=== PATIENT | female | born 1940 | race Caucasian/White ===

== ENCOUNTER 2024-02-21 06:20 | Outpatient (REF) | payer SELFPAY | END 2024-02-21 06:21 | disposition home or self-care (01) | LOC: HO.MMNH2L 06:20 | PROVIDERS: Visit Provider Internal Medicine | DX: Z13.89 Encounter for screening for other disorder (principal) ==

== ENCOUNTER 2024-09-11 15:12 | Outpatient (REF) | payer MEDICARE, OTHER, SELFPAY ==
--- OUTSIDE RECORDS SUMMARY | 2024-09-12 15:44 | XMS_ITS | Clinical Summary ---
Author Organization [facility] ity Address [address] [place] [address] Care Team Providers Care Pharmacy Technician Instructor Name Role Phone Agustin Matthews MD Primary Care Provider [phone] Surgical History Surgery Date Site/Laterality Comments HERNIA REPAIR PROCEDURE:HERNIA REPAIR JOINT REPLACEMENT PROCEDURE:JOINT REPLACEMENT Medical History Medical History Date Comments Diabetes mellitus (CMS/HCC V 24, CMS/HCC V28) DX:Diabetes mellitus (HCC);COMMENT:borderline Hypertension DX:Hypertension History of transfusion DX:Histor y of transfusion GERD (gastroesophageal reflux disease) DX:GERD (gastroesophageal reflux disease) Family History Medical History Relation Name Comments Cancer Father Relation Name Status Comments Father Social History Tobacco Use Types Packs/Day Years Used Date Smoking Tobacco: Former Cigarettes Q uit: 05/08/1960 Smokeless Tobacco: Never Alcohol Use Standard Drinks/Week Comments No 0 (1 standard drink = 0.6 oz pur e alcohol) Comments Unknown Sex and Gender Information Value Date Recorded Sex Assigned at Not on file Legal Sex Female 1:36 PM EST Gender Identity Not on file Sexual Orientation Not on file Obstetrics History Last Filed Vital Signs Vital Sign Reading Time Taken Comments Blood Pressure - - Pulse - - Temperature - - Respiratory Rate - - Oxygen Saturation - - Inhaled Oxygen Concentration - - Weight 70.8 kg (156 lb) 2021 8:33 AM EDT Height 157.5 cm (5' 2 ) 2021 8:33 AM EDT Body Mass Index 28.53 2021 8:33 AM EDT Plan of Treatment Health Maintenance Due Date Last Done Comments DTaP,Tdap,and Td Vaccines (1 - Tdap) 12/02/1959 Pneumococcal Vaccine: 50+ Ye ars (1 of 1 - PCV) 1990 Zoster Vaccines (1 of 2) 1990 RSV Immunization Adult Patie nts (1 - 1-dose 75+ series) 12/02/2015 Depression Screening 04/05/2022 Falls Risk Assessment 04/05/2022 Social Influencers of Health Screening 04/05/2022 COVID-19 Vaccine (2023-2 5 season) 2024 Influenza Vaccine (Season Ended) 2025 Osteoporosis Screening (Bone Density Screening) 08/05/2031 08/04/2021 HIB Vaccines Aged Out No longer eligi ble based on patient's age to complete this topic HPV Vaccines Aged Out No longer eligi ble based on patient's age to complete this topic Hepatitis A Vaccines Aged Out No long er eligible based on patient's age to complete this topic Hepatitis B Vaccines Aged Out No long er eligible based on patient's age to complete this topic IPV Vaccines Aged Out No longer eligi ble based on patient's age to complete this topic MMR Vaccines Aged Out No longer eligi ble based on patient's age to complete this topic Meningococcal ACWY Vaccine Aged Out N o longer eligible based on patient's age to complete this topic Meningococcal B Vaccine Aged Out No l onger eligible based on patient's age to complete this topic RSV Immunization Patients Un myra 20 months Aged Out No longer eligible b ased on patient's age to complete this topic Varicella Vaccines Aged Out No longer eligible based on patient's age to complete this topic Procedures Procedure Name Priority Date/Time Associated Diagnosis Comments [facility] DEXA AXIAL SKELETON Routine 08/04/2021 12:18 PM EDT Encounter for screening for osteoporosis from Last 3 Months or Most Recently Relevant to Health Maintenance Results * [facility] DEXA AXIAL SKELETON (08/04/2021 12:18 PM EDT) Anatomical Region Laterality Modality Mammography 08/04/2021 10:4 5 AM EDT Narrative 08/04/2021 12:18 PM EDT [facility] Diagnostic Imaging Department [address] [place] [id number] Patient: ??EULALIA SENIOR ?/Age/Sex: 1940 - 80 - F Unit#: ??[id number] ? Location/Status: ??SPDIMAM/REG CLI ? Mnemonic/Ordering Site: ??MAMDEXAAX/SPMAM Ordering Physician: ??AGUSTIN MATTHEWS MD [facility] Dexa Axial Skeleton - 08/04/214 HISTORY: ??The patient is an 80-year-old postmenopausal female with clinical concern for metabolic bone disease. FINDINGS: ??Dual energy x-ray absorptiometry of the lumbar spine and femurs is performed. The mean bone mineral density at L1-3 is 0.967 gm/cm2 which is 83% of that of young normals and 103% of that of age matched controls. This yields a T- score of -1.7 and a Z-score of 0.2 which is diagnostic of osteopenia. The mean bone mineral density of the femurs bilaterally is 0.685 gm/cm2 which is 68% of that of young normals and 92% of that of age matched controls. ??This yields a T-score of -2.6 and a Z-score of -0.5 which is diagnostic of osteoporosis. ??The T-score of the left femoral neck is -2.7 which is diagnostic of osteoporosis. IMPRESSION: 1. Osteoporosis. ??There has been a decrease of 15.4% in bone mineral density in the lumbar spine since the prior examination of 02/21/2014. ??There has been a decrease of 23.5% in bone mineral density in the right femur and a decrease of 21.2% in bone mineral density in the left femur. 2. FRAX analysis yields a 10-year probability of major osteoporotic fracture of 22.3% and a 10-year probability of hip fracture of 8.5%. Code 11491 Dictating Physician: ??LEONELA PHOENIX MD Electronically Signed by: ??LEONELA PHOENIX MD Dic Date/Time: ??08/04/21 1216 Sign date/Time: ??08/04/21 1218 Procedure Note Leonela Phoenix MD - 04/27/2022 [facility] Diagnostic Imaging Department [address] [place] [address] Patient: SODAWNAEULALIA D.O.B./Age/Sex: 1940 - 80 - F Unit#: [id number] Location/Status: [facility] Mnemonic/Ordering Site: [facility] Ordering Physician: AGUSTIN MATTHEWS MD [facility] Dexa Axial Skeleton - 08/04/21 - 111 HISTORY: The patient is an 80-year-old postmenopausal female withclinical concern for metabolic bone disease. FINDINGS: Dual energy x-ray absorptiometry of the lumbar spine and femursis performed. The mean bone mineral density at L1-3 is 0.967 gm/cm2 which is83% of that of young normals and 103% of that of age matched controls. Thisyields a T- score of -1.7 and a Z-score of 0.2 which is diagnostic of osteopenia. The mean bone mineral density of the femurs bilaterally is 0.685 gm/jp7vuxaz is 68% of that of young normals and 92% of that of age matched controls.This yields a T-score of -2.6 and a Z-score of -0.5 which is diagnostic of osteoporosis. The T-score of the left femoral neck is -2.7 which isdiagnostic of osteoporosis. IMPRESSION: 1. Osteoporosis. There has been a decrease of 15.4% in bone mineraldensity in the lumbar spine since the prior examination of 02/21/2014. There hasbeen a decrease of 23.5% in bone mineral density in the right femur and adecrease of 21.2% in bone mineral density in the left femur. 2. FRAX analysis yields a 10-year probability of major osteoporoticfracture of 22.3% and a 10-year probability of hip fracture of 8.5%. Code 83384 Dictating Physician: LEONELA PHOENIX MD Electronically Signed by: LEONELA PHOENIX MD Dic Date/Time: 08/04/21 1216 Sign date/Time: 08/04/21 1218 Agustin Matthews MD IMG BI PROCEDURES Final Result from Last 3 Months or Most Recently Relevant to Health Maintenance Advance Directives Documents on File Type Date Recorded Patient Marketing Development Specialist Expl anation Health Care Decision (hx) 02/07/2019 AD DANIELS DIRECTIVE Health Care Decision (hx) 02/07/2019 AD DANIELS DIRECTIVE Health Care Decision (hx) 02/07/2019 AD DANIELS DIRECTIVE Health Care Decision (hx) 02/07/2019 AD DANIELS DIRECTIVE Health Care Decision (hx) 02/07/2019 AD DANIELS DIRECTIVE Health Care Decision (hx) 02/07/2019 AD DANIELS DIRECTIVE Health Care Decision (hx) 02/07/2019 AD DANIELS DIRECTIVE Health Care Decision (hx) 02/07/2019 AD DANIELS DIRECTIVE Health Care Decision (hx) 02/07/2019 AD DANIELS DIRECTIVE Health Care Decision (hx) 02/07/2019 AD DANIELS DIRECTIVE Health Care Decision (hx) 02/07/2019 AD DANIELS DIRECTIVE Health Care Decision (hx) 02/07/2019 AD DANIELS DIRECTIVE Health Care Decision (hx) 02/04/2019 AD DANIELS DIRECTIVE Health Care Decision (hx) 02/04/2019 AD DANIELS DIRECTIVE Health Care Decision (hx) 02/04/2019 AD DANIELS DIRECTIVE Health Care Decision (hx) 02/04/2019 AD DANIELS DIRECTIVE Health Care Decision (hx) 02/04/2019 AD DANIELS DIRECTIVE Health Care Decision (hx) 02/04/2019 AD DANIELS DIRECTIVE Health Care Decision (hx) 02/04/2019 AD DANIELS DIRECTIVE Health Care Decision (hx) 02/04/2019 AD DANIELS DIRECTIVE Health Care Decision (hx) 02/04/2019 AD DANIELS DIRECTIVE Health Care Decision (hx) 02/04/2019 AD DANIELS DIRECTIVE Health Care Decision (hx) 02/04/2019 AD DANIELS DIRECTIVE Health Care Decision (hx) 02/04/2019 AD DANIELS DIRECTIVE Health Care Decision (hx) 02/05/2013 AD DANIELS DIRECTIVE Health Care Decision (hx) 02/05/2013 AD DANIELS DIRECTIVE Health Care Decision (hx) 02/05/2013 AD DANIELS DIRECTIVE Health Care Decision (hx) 02/05/2013 AD DANIELS DIRECTIVE Health Care Decision (hx) 02/05/2013 AD DANIELS DIRECTIVE Health Care Decision (hx) 02/05/2013 AD DANIELS DIRECTIVE Health Care Decision (hx) 02/05/2013 AD DANIELS DIRECTIVE Health Care Decision (hx) 02/05/2013 AD DANIELS DIRECTIVE Health Care Decision (hx) 02/05/2013 AD DANIELS DIRECTIVE Health Care Decision (hx) 02/05/2013 AD DANIELS DIRECTIVE Health Care Decision (hx) 02/05/2013 AD DANIELS DIRECTIVE Health Care Decision (hx) 02/05/2013 AD DANIELS DIRECTIVE Care Teams Pharmacy Technician Instructor Relationship Specialty Start [place] [address] [place] [address] PCP - General Internal Medicine 08/10/18
--- OUTSIDE RECORDS SUMMARY | 2024-09-12 15:44 | XMS_ITS | Clinical Summary ---
Author Organization [facility] Address [address] [place] [address] Care Team Providers Care Coffee Urn Attendant Name Role Phone Agustin Elena MD Primary Care Provider [phone] Allergies No known active allergies Medications Medication Sig Dispensed Refills Start Date End Date Status amLODIPine (NORVASC) tablet 10 mg Take 10 mg by mouth daily. 3 08/11/2018 Active atenolol-chlortha lidone (TENORETIC) 50-25 MG per tablet Take 1 tablet by mouth daily. 3 08/04/2018 Active celecoxib (CeleBREX) 100 MG capsule Take 100 mg by mouth 2 (two) times a day as needed. 3 08/04/2018 Active simvastatin (ZOCOR) tablet 10 mg Take 10 mg by mouth every night at bedtime. 3 08/04/2018 Active omeprazole (PriLOSEC) 20 MG capsule Take 20 mg by mouth daily. 3 05/30/2018 Active aspirin 81 MG tablet Take 81 mg by mouth daily. 0 Active aspirin EC 325 MG tablet Aspirin EC take 1 dab daily po 0 04/10/2012 Active meloxicam (MOBIC) 15 MG tablet Mobic 15 mg tablet DAILY, NEEDED 0 Active Multiple Vitamins-Minerals (MULTIVITAMIN ADULT EXTRA C PO) multivitamin DAILY 0 Active traZODone (DESYREL) 50 MG tablet trazodone 50 mg tablet 0 Active amoxicillin (AMOXIL) 500 MG tablet Take 4 tabs 1 hour prior to dental appointment 20 tablet 3 02/19/2019 Active HYDROcodone-aceta minophen (NORCO) 5-325 MG per tablet Take 1 to 2 tabs every 6 hours as needed for pain. May fill for lesser quantity 42 tablet 0 06/07/2019 Active HYDROcodone-aceta minophen (NORCO) 5-325 MG per tablet Take 1 tab every 24 hours as needed for pain 20 tablet 0 09/11/2019 Active ascorbic acid (VITAMIN C) 500 MG tablet daily. 0 Active Cholecalciferol 50 MCG (2000 UT) CAPS Vitamin D3 50 mcg (2,000 unit) capsule TAKE ONE CAPSULE BY MOUTH EVERY DAY 0 Active diphenhydrAMINE (SOMINEX) 25 MG tablet diphenhydramine 25 mg tablet Take 1 tablet as needed by oral route at bedtime. 0 Active omeprazole (PriLOSEC OTC) 20 MG tablet Prilosec OTC 20 mg tablet,delayed release DAILY 0 05/21/2013 Active gabapentin (NEURONTIN) 100 MG capsule gabapentin 100 mg capsule Take 1 capsule 3 times a day by oral route for 30 days. 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 09/04/2018 Arthritis of knee, left 08/22/2018 Arthritis of knee, right 08/22/2018 Resolved Problems Problem Noted Date Diagnosed Date Resolved Date Impingement syndrome of left shoulder region 9 06/08/2021 Family History Medical History Relation Name Comments Cancer Father Relation Name Status Comments Father Social History Tobacco Use Types Packs/Day Years Used Date Smoking Tobacco: Former Cigarettes Q uit: 1961 Smokeless Tobacco: Never Alcohol Use Standard Drinks/Week Comments No 0 (1 standard drink = 0.6 oz pur e alcohol) Sex and Gender Information Value Date Recorded Sex Assigned at Not on file Gender Identity Not on file Sexual Orientation Not on file Job Start Date Occupation Industry Not on file Not on file Not on file Last Filed Vital Signs Vital Sign Reading [...] Health Maintenance Due Date Last Done Comments COVID-19 Vaccine (#1) 06/03/1941 Depression Screening 1952 Preventative Health Evaluation 1958 Fall Risk Assessment 2005 Osteoporosis Screening (DEXA Scan) 2005 RSV Adult > 60+ Yrs or (1 - 1-dose 75+ series) 12/02/2015 Influenza Vaccine (#1) 2024 , 03/07/2020, 01/27/2020, Additional history exists DTap / Tdap / Td (2 - Td or Tdap) 02/26/2025 02/26/2015 Pneumococcal Vaccine Completed 02/26/2015, 02/20/20 14 Shingrix-Zoster Vaccine Completed 09/09/2021, 03/23 Hepatitis B Vaccines Aged Out No long er eligible based on patient's age to complete this topic RSV Ped < 20 months Aged Out No longe r eligible based on patient's age to complete this topic Care Teams Coffee Urn Attendant Relationship Specialty Start Date End Date Agustin Elena MD [address] [place] [address] PCP - General Internal Medicine 08/10/18
--- OUTSIDE RECORDS SUMMARY | 2024-09-12 15:45 | XMS_ITS | Data Portability ---
Author Organization [facility], Main Office Address [address] [facility] [address] [place] [id number] Care Team Providers Care Gate Keeper Name Role Phone AGUSTIN MATTHEWS Primary Care Provider [phone] JERARDO FAJARDO OTHER ANTONIA CLEMENS [employer] Projects Lead GERMÁN RYAN General Surgeon CAMERON HOWELL Civil Engineering Assistant [phone] HAILE KOLB Thoracic Surgeon BARBIE ARREOLA Orthopedic Surgeon [phone] ILYA TONEY Urologist [employer] [facility] Thoracic Surgeon Assessment Encounter Date Assessment Date Assessment LastModified by Organization Details LastModified Time 03/29/2024 03/29/2024 This service was provided using telemedicine. Patient consented to video & audio visit Patient was located in the [facility]. Provider was located in the office. No other persons participated in the telemedicine visit except for the patient unless otherwise indicated here. Son/Abdi Total time of visit was 29 minutes. [email or web address] Not available 03/29/2024 14:48:52 05/23/2024 05/23/2024 This service was provided using telemedicine. Patient consented to video & audio visit Patient was located in the [facility]. Provider was located in the office. No other persons participated in the telemedicine visit except for the patient unless otherwise indicated here. {{}} Total time of visit was 19 minutes. [email or web address] Not available 05/23/2024 12:52:26 Plan of Treatment Reminders Order Date Submit Date Provider Last Modified By Organization Details Last Modified Time Details Appointments None recorde d. Lab HbA1c (hemogl obin A1c), blood 2024 awychowski [facility] (Centralized Electronic Ordering - All Locations), Patient Can Go To The Location Of Their Choice, 07:41:26 CMP, serum or plasma 2024 awychowski [facility] (Centralized [facility] Ordering - All Locations), Patient Can Go To The Location Of Their Choice, 07:41:26 CBC w/ auto diff 2024 awychowski [facility] (Centralized Electronic Ordering - All Locations), Patient Can Go To The Location Of Their Choice, 07:41:26 ESR (erythr ocyte sedimen tation rate), blood 2024 ORAL [facility] (Centralized Electronic Ordering - All Locations), Patient Can Go To The Location Of Their Choice, 13:27:24 iron + total iron-bi nding capacit y (TIBC), serum 2024 ORAL [facility] (Centralized Electronic Ordering - All Locations), Patient Can Go To The Location Of Their Choice, 10:05:54 prealbu min, serum 2023 ORAL [facility] (Centralized Electronic Ordering - All Locations), Patient Can Go To The Location Of Their Choice, 16:06:18 vitamin B12 + folate, serum or blood 2023 ORAL [facility] (Centralized Electronic Ordering - All Locations), Patient Can Go To The Location Of Their Choice, 16:06:15 TSH + free T4, serum 2023 ORAL [facility] (Centralized Electronic Ordering - All Locations), Patient Can Go To The Location Of Their Choice, 16:06:10 lipid panel, serum 2023 ORAL [facility] (Centralized Electronic Ordering - All Locations), Patient Can Go To The Location Of Their Choice, 16:06:14 magnesi um, serum or plasma 2023 ORAL [facility] (Centralized Electronic Ordering - All Locations), Patient Can Go To The Location Of Their Choice, 16:06:16 CBC w/ auto diff 2023 ORAL [facility] (Centralized Electronic Ordering - All Locations), Patient Can Go To The Location Of Their Choice, 16:06:12 HbA1c (hemogl obin A1c), blood 2023 ORAL [facility] (Centralized Electronic Ordering - All Locations), Patient Can Go To The Location Of Their Choice, 16:06:16 CMP, serum or plasma 2023 ORAL [facility] (Centralized Electronic Ordering - All Locations), Patient Can Go To The Location Of Their Choice, 16:06:13 urinaly sis, complet e 2023 ORAL [facility] (Centralized Electronic Ordering - All Locations), Patient Can Go To The Location Of Their Choice, 4 14:58:11 Referral orthope dic surgeon referra l - for f/u TKR x 2 2024 RAÚL Jimenez MD, [address], [address], [place], [address], 5 15:30:48 visitin g nurse referra l - for decubit us wound care 2024 025 [facility] [address] [place], [address], 5 07:14:13 general surgeon referra l - for follow up on ventral hernia 2024 025 Keysha Zimmer MD, [address], [facility] [address], [place], [address], 5 15:03:18 Procedures None recorde d. Surgeries None recorde d. Imaging XR, knee, 3 view - to confirm prosthe tic stabili ty 2024 025 [facility], [address] [place], [address], 5 09:57:47 XR, abdomen , complet e - rule out obstruc tion/co nstipat ion 2024 025 [facility], [address] [place], [address], 5 10:11:46 Medication Orders ketocon azole 2 % shampoo 2024 025 [id number], [address] [place], [address], 5 11:51:58 ondanse juhi HCl 4 mg tablet 2024 025 [facility] #[id number], [address] [place], [address], 5 11:08:46 omepraz ole 40 mg capsule ,delaye d release [address] [facility] [place]Pharmacy #[id number], [address] [place], [address], 5 13:18:01 oxycodo ne 5 mg tablet [address] [facility] ([place] [place]Pharmacy #[id number], [address] [facility] [place], [address], 5 11:08:54 omepraz ole 40 mg capsule ,delaye d release [address] [facility] ([place] [place]Pharmacy #[id number], [address] [facility] [place], [address], 14:57:59 metopro lol tartrat e 25 mg tablet 2023 024 [email or web address] [facility]armacy #[id number], [address] [place], [address], 5 11:08:09 duloxet ine 30 mg capsule ,delaye d release 2023 024 [id number], [address] [place], [address], 4 14:57:56 omepraz ole 40 mg capsule ,delaye d release 2023 024 [id number], [address] [place], [address], 17:34:17 Patient TargetsNo targets recorded. Patient Instructions Encounter Date Encounter Id Patient Instructions Last Modified By Organization Details Last Modified Time 03/07/2024 [id number] gastroesophageal reflux disease (GERD): care instructions [email or web address] Not available 03/07/2024 17:34:15 Medications (OTC , herbal therapies, supplements) reviewed and reconciled with patient and or caregiver, including potential side effects, drug interactions, instructions, and the consequences of not taking medication. Reviewed potential barriers to medication adherence, such as side effects from medication or cost of medication. [email or web address] Not available 03/07/2024 14:12:32 03/29/2024 [id number] high cholesterol : care instructions [email or web address] Not available 03/29/2024 14:57:51 preventing falls : care instructions [email or web address] Not available 03/29/2024 14:57:51 well visit, over 65: care instructions [email or web address] Not available 03/29/2024 14:57:51 05/23/2024 [id number] abdominal pain: care instructions [email or web address] Not available 05/23/2024 12:17:42 hernia: care instructions [email or web address] Not available 05/23/2024 12:17:41 07/01/2024 [id number] anemia: care instructions [email or web address] Not available 07/01/2024 13:17:59 Reason for Referral General Surgeon Referral for Hernia of anterior abdominal wall for follow up on ventral hernia Referring Physician: Agustin Matthews [facility], Encounter Date: 05/23/2024 Visiting Nurse Referral for Pressure injury of buttock stage II for decubitus wound care Referring Physician: Agustin Matthews [facility], Encounter Date: 07/01/2024 Orthopedic Surgeon Referral for 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 Referring Physician: Agustin Matthews [facility], Encounter Date: 07/30/2024 Results Created Date Observation Date Name Description Value Unit Range Abnormal Flag Note LastModifiedBy Organization Detail LastModifiedTime 07/01/1907/02/2024 IRON AND TIBC iron bind.cap.(TI BC) 346 ug/dL 250-45 0 normal Not Available [facility] ([facility]) [address] [place], [address], 07/02/2024 10:05:54 07/01/19 25 07/02/2024 IRON AND TIBC UIBC 271 ug/dL 118-36 9 normal Not Available [facility] ([facility]) [address] [place], [address], 07/02/2024 10:05:54 07/01/19 25 07/02/2024 IRON AND TIBC iron 75 ug/dL 27-139 normal Not Available [facility] ([facility]) [address] [place], [address], 07/02/2024 10:05:54 07/01/19 25 07/02/2024 IRON AND TIBC iron saturation 22 % 15-55 normal Not Available [facility] ([facility]) [address] [place], [address], 07/02/2024 10:05:54 07/01/19 25 07/02/2024 TSH+F REE T4 TSH 1.070 uIU/m L 0.450- 4.500 normal Not Available [facility] ([facility]) [address] [place], [address], 07/02/2024 16:06:10 07/01/1907/02/2024 TSH+F REE T4 T4,free(dire ct) 1.33 NG/dL 0.82-1 .77 normal Not Available [facility] ([facility]) [address] [place], [address], 07/02/2024 16:06:10 07/01/1907/02/2024 CBC WITH DIFFE RENTI AL/PL ATELE T WBC 11.8 x10e3 /uL 3.4-10 .8 above high normal Not Available [facility] ([facility]) [address] [facility], [place], [address], 07/02/2024 16:06:12 07/01/1907/02/2024 CBC WITH DIFFE RENTI AL/PL ATELE T RBC 4.83 x10e6 /uL 3.77-5 .28 normal Not Available [facility] ([facility]) [address] [place], [address], 07/02/2024 16:06:12 07/01/19 25 07/02/2024 CBC WITH DIFFE RENTI AL/PL ATELE T hemoglobin 13.5 g/dL 11.1-1 5.9 normal Not Available [facility] ([facility]) [address] [place], [address], 07/02/2024 16:06:12 07/01/1907/02/2024 CBC WITH DIFFE RENTI AL/PL ATELE T hematocrit 43.8 % 34.0-4 6.6 normal Not Available [facility] ([facility]) [address] [place], [address], 07/02/2024 16:06:12 07/01/19 25 07/02/2024 CBC WITH DIFFE RENTI AL/PL ATELE T MCV 91 fL 79-97 normal Not Available [facility] ([facility]) [address] [facility], [place], [address], 07/02/2024 16:06:12 07/01/19 25 07/02/2024 CBC WITH DIFFE RENTI AL/PL ATELE T MCH 28.0 pg 26.6-3 3.0 normal Not Available [facility] ([facility]) [address] [facility], [place], [address], 07/02/2024 16:06:12 07/01/19 25 07/02/2024 CBC WITH DIFFE RENTI AL/PL ATELE T MCHC 30.8 g/dL 31.5-3 5.7 below low normal Not Available [facility] ([facility]) [address] [facility], [place], [address], 07/02/2024 16:06:12 07/01/19 25 07/02/2024 CBC WITH DIFFE RENTI AL/PL ATELE T RDW 13.7 % 11.7-1 5.4 Not Available [facility] ([facility]) [address] [place], [address], 07/02/2024 16:06:12 07/01/19 25 07/02/2024 CBC WITH DIFFE RENTI AL/PL ATELE T platelets 281 x10e3 /uL 150-45 0 normal Not Available [facility] ([facility]) [address] [place], [address], 07/02/2024 16:06:12 07/01/19 25 07/02/2024 CBC WITH DIFFE RENTI AL/PL ATELE T neutrophils 69 % not estab. normal Not Available [facility] ([facility]) [address] [place], [address], 07/02/2024 16:06:12 07/01/19 25 07/02/2024 CBC WITH DIFFE RENTI AL/PL ATELE T lymphs 21 % not estab. normal Not Available [facility] ([facility]) [address] [place], [address], 07/02/2024 16:06:12 07/01/19 25 07/02/2024 CBC WITH DIFFE RENTI AL/PL ATELE T monocytes 6 % not estab. normal Not Available [facility] ([facility]) [address] [place], [address], 07/02/2024 16:06:12 07/01/19 25 07/02/2024 CBC WITH DIFFE RENTI AL/PL ATELE T eos 2 % not estab. normal Not Available [facility] ([facility]) [address] [place], [address], 07/02/2024 16:06:12 07/01/19 25 07/02/2024 CBC WITH DIFFE RENTI AL/PL ATELE T basos 1 % not estab. normal Not Available [facility] ([facility]) [address] [place], [address], 07/02/2024 16:06:12 07/01/19 25 07/02/2024 CBC WITH DIFFE RENTI AL/PL ATELE T immature cells SECURITY INVESTIGATOR Not Available [facility] ([facility]) [address] [place], [address], 07/02/2024 16:06:12 07/01/19 25 07/02/2024 CBC WITH DIFFE RENTI AL/PL ATELE T neutrophils (absolute) 8.3 x10e3 /uL 1.4-7. 0 above high normal Not Available [facility] ([facility]) [address] [place], [address], 07/02/2024 16:06:12 07/01/19 25 07/02/2024 CBC WITH DIFFE RENTI AL/PL ATELE T lymphs (absolute) 2.4 x10e3 /uL 0.7-3. 1 normal Not Available [facility] ([facility]) [address] [place], [address], 07/02/2024 16:06:12 07/01/19 25 07/02/2024 CBC WITH DIFFE RENTI AL/PL ATELE T monocytes(ab solute) 0.7 x10e3 /uL 0.1-0. 9 normal Not Available [facility] ([facility]) [address] [facility], [place], [address], 07/02/2024 16:06:12 07/01/19 25 07/02/2024 CBC WITH DIFFE RENTI AL/PL ATELE T eos (absolute) 0.2 x10e3 /uL 0.0-0. 4 normal Not Available [facility] ([facility]) [address] [facility], [place], [address], 07/02/2024 16:06:12 07/01/19 25 07/02/2024 CBC WITH DIFFE RENTI AL/PL ATELE T baso (absolute) 0.1 x10e3 /uL 0.0-0. 2 normal Not Available [facility] ([facility]) [address] [place], [address], 07/02/2024 16:06:12 07/01/19 25 07/02/2024 CBC WITH DIFFE RENTI AL/PL ATELE T immature granulocytes 1 % not estab. Not Available [facility] ([facility]) [address] [facility], [place], [address], 07/02/2024 16:06:12 07/01/19 25 07/02/2024 CBC WITH DIFFE RENTI AL/PL ATELE T immature grans (abs) 0.1 x10e3 /uL 0.0-0. 1 Not Available [facility] ([facility]) [address] [facility], [place], [address], 07/02/2024 16:06:12 07/01/19 25 07/02/2024 CBC WITH DIFFE RENTI AL/PL ATELE T NRBC SECURITY INVESTIGATOR Not Available [facility] ([facility]) [address] [facility], [place], [address], 07/02/2024 16:06:12 07/01/19 25 07/02/2024 CBC WITH DIFFE FRANKLIN AL/PL ATELE T hematology comments: SECURITY INVESTIGATOR Not Available [facility] ([facility]) [address] [facility], [place], [address], 07/02/2024 16:06:12 07/01/19 25 07/02/2024 COMP. METAB OLIC PANEL (14) glucose 130 mg/dL 70-99 above high normal Not Available [facility] ([facility]) [address] [facility] [place], [address], 07/02/2024 16:06:13 07/01/19 25 07/02/2024 COMP. METAB OLIC PANEL (14) BUN 22 mg/dL 8-27 normal Not Available [facility] ([facility]) [address] [facility], [place], [address], 07/02/2024 16:06:13 07/01/19 25 07/02/2024 COMP. METAB OLIC PANEL (14) creatinine 0.82 mg/dL 0.57-1 .00 normal Not Available [facility] ([facility]) [address] [facility] [place], [address], 07/02/2024 16:06:13 07/01/19 25 07/02/2024 COMP. METAB OLIC PANEL (14) eGFR 71 mL/mi n/1.7 3 >59 normal Not Available [facility] ([facility]) [address] [facility] [place], [address], 07/02/2024 16:06:13 07/01/19 25 07/02/2024 COMP. METAB OLIC PANEL (14) BUN/creatini ne ratio 27 12-28 normal Not Available [facility] ([facility]) [address] [facility] [place], [address], 07/02/2024 16:06:13 07/01/19 25 07/02/2024 COMP. METAB OLIC PANEL (14) sodium 142 mmol/ L 134-14 4 normal Not Available [facility] ([facility]) [address] [facility] [place], [address], 07/02/2024 16:06:13 07/01/19 25 07/02/2024 COMP. METAB OLIC PANEL (14) potassium 4.2 mmol/ L 3.5-5. 2 normal Not Available [facility] ([facility]) [address] [facility] [place], [address], 07/02/2024 16:06:13 07/01/19 25 07/02/2024 COMP. METAB OLIC PANEL (14) chloride 105 mmol/ L 96-106 normal Not Available [facility] ([facility]) [address] [place], [address], 07/02/2024 16:06:13 07/01/19 25 07/02/2024 COMP. METAB OLIC PANEL (14) carbon dioxide, total 22 mmol/ L 20-29 normal Not Available [facility] ([facility]) [address] [facility] [place], [address], 07/02/2024 16:06:13 07/01/19 25 07/02/2024 COMP. METAB OLIC PANEL (14) calcium 10.3 mg/dL 8.7-10 .3 normal Not Available [facility] ([facility]) [address] [facility] [place], [address], 07/02/2024 16:06:13 07/01/19 25 07/02/2024 COMP. METAB OLIC PANEL (14) protein, total 6.7 g/dL 6.0-8. 5 normal Not Available [facility] ([facility]) [address] [place], [address], 07/02/2024 16:06:13 07/01/19 25 07/02/2024 COMP. METAB OLIC PANEL (14) albumin 4.5 g/dL 3.7-4. 7 normal Not Available [facility] ([facility]) [address] [place], [address], 07/02/2024 16:06:13 07/01/19 25 07/02/2024 COMP. METAB OLIC PANEL (14) globulin, total 2.2 g/dL 1.5-4. 5 Not Available [facility] ([facility]) [address] [place], [address], 07/02/2024 16:06:13 07/01/19 25 07/02/2024 COMP. METAB OLIC PANEL (14) bilirubin, total 0.4 mg/dL 0.0-1. 2 normal Not Available [facility] ([facility]) [address] [place], [address], 07/02/2024 16:06:13 07/01/19 25 07/02/2024 COMP. METAB OLIC PANEL (14) alkaline phosphatase 115 IU/L 44-121 normal Not Available [facility] ([facility]) [address] [place], [address], 07/02/2024 16:06:13 07/01/19 25 07/02/2024 COMP. METAB OLIC PANEL (14) AST (SGOT) 14 IU/L 0-40 normal Not Available [facility] ([facility]) [address] [place], [address], 07/02/2024 16:06:13 07/01/19 25 07/02/2024 COMP. METAB OLIC PANEL (14) ALT (SGPT) 6 IU/L 0-32 normal Not Available [facility] ([facility]) [address] [place], [address], 07/02/2024 16:06:13 07/01/19 25 07/02/2024 LIPID PANEL cholesterol, total 167 mg/dL 100-19 9 normal Not Available [facility] ([facility]) [address] [place], [address], 07/02/2024 16:06:14 07/01/19 25 07/02/2024 LIPID PANEL triglyceride s 143 mg/dL 0-149 normal Not Available [facility] ([facility]) [address] [place], [address], 07/02/2024 16:06:14 07/01/19 25 07/02/2024 LIPID PANEL HDL cholesterol 52 mg/dL >39 normal Not Available [facility] ([facility]) [address] [place], [address], 07/02/2024 16:06:14 07/01/19 25 07/02/2024 LIPID PANEL VLDL cholesterol debby 25 mg/dL 5-40 Not Available [facility] ([facility]) [address] [place], [address], 07/02/2024 16:06:14 07/01/19 25 07/02/2024 LIPID PANEL LDL chol calc ([facility]) 90 mg/dL 0-99 Not Available [facility] ([facility]) [address] [place], [address], 07/02/2024 16:06:14 07/01/19 25 07/02/2024 LIPID PANEL LDL calc comment: SECURITY INVESTIGATOR Not Available [facility] ([facility]) [address] [place], [address], 07/02/2024 16:06:14 07/01/19 25 07/02/2024 VITAM IN B12 AND FOLAT E vitamin B12 564 pg/mL 232-12 45 normal Not Available [facility] ([facility]) [address] [place], [address], 07/02/2024 16:06:14 07/01/19 25 07/02/2024 VITAM IN B12 AND FOLAT E folate (folic acid), serum 4.7 NG/mL >3.0 normal A serum folat e mitzy ntrat ion of less than 3.1 ng/mL is consi dered to repre sent clini debby defic iency . Not Available [facility] ([facility]) [address] [facility], [place], [address], 07/02/2024 16:06:14 07/01/1907/02/2024 HEMOG LOBIN A1C hemoglobin A1C 6.3 % 4.8-5. 6 above high normal Predi abete s: 5.7 - 6.4 Diabe jaleel: >6.4 Glyce andrei contr ol for adult s with diabe jaleel: <7.0 Not Available [facility] ([facility]) [address] [place], [address], 07/02/2024 16:06:16 07/01/1907/02/2024 MAGNE SIUM magnesium 1.8 mg/dL 1.6-2. 3 normal Not Available [facility] ([facility]) [address] [place], [address], 07/02/2024 16:06:16 07/01/19 25 07/02/2024 PREAL BUMIN prealbumin 21 mg/dL 9-32 Not Available [facility] ([facility]) [address] [place], [address], 07/02/2024 16:06:17 05/25/19 25 05/23/2024 XR, abdom en Supine view of the abdome n and pelvis dated 2024. Compar teresa films are from 2022. HISTOR Y: Pain. FINDIN GS: This examin ation shows a nonobs tructe d bowel gas patter n. Some modele d lucenc y is presen t in the mid abdome n. The differ ential diagno sis could includ e materi al within the stomac h or colon. No free air is apprec iated. No masses or suspic ious calcif icatio ns are identi fied. Degene rative change s are noted in the spine. Postop erativ e change s are noted in both hips. IMPRES DAWSON: Findin gs are suspic ious for materi al within a mildly disten ded stomac h. No eviden ce of bowel obstru ction or free air on this examin ation. Furthe r evalua tion can be perfor med with CT, as needed . Examin ation [id number]. Thank you for allowi ng me to partic ipate in the care of this patien t. WSN: [id number] Orderi ng Physic ean: Agustin Iqbal Dictat ed By: Thom Da Silva MD Dictat ed Date/T martinez: 4:00 pm Review ed By: Thom Da Silva MD Signed By: Thom Da Silva MD Signed Date/T martinez: 4:00 pm Transc ribed By: ALEX Transc ribed Date/T martinez: 4:00 pm Patien t Class: Outpat ient [facility] (Outpt [facility]) [address] , [place], [address], 07/01/2024 13:15:55 Result Notes None recorded. Problems Name Problem SNOMED Code Status Onset Date Resolution Date Notes Provider Name and Address Organization Details Recorded Time Tobacco user [id number] Completed 201212/16/2013 RECORDED 11/01/19 13 11:06AM BY KALEIGH BERRY MA, ROLA ON/ERICH Gage PA-C [address] [facility], [place], [address] , [facility] 6 10:37:36 Cough [id number] Completed 201312/16/2013 IMPRESSI ON: LIKELY VIRAL. PT ADVISED TO CALL IF PERSISTA NT OR BECOMES PRODUCTI VE. OTC COUGH SUPPRESS ANT RECOMMEN DED IN MEANTIME .; RECORDED 06/07/19 14 8:04AM BY MEET ROA MA, ROLA ON/ERICH Gage PA-C [address] [facility], [place], [address] , [facility] 6 10:37:36 Influenz a vaccine needed [id number] 06 Completed 201112/16/2013 RECORDED 04/10/20 12 8:17AM BY GERARDO CHAUHAN I, OFFICE VISIT Janet Gage PA-C [address] [facility] [address], [place], [address] , [facility] 6 10:37:36 Adult health examinat ion Completed 201212/16/2013 IMPRESSI ON: IMMUNIZA TION STATUS UTD (PT RECEVICE PCV23 FROM PREVIOUS EMPLOYER ) FLU ADVISED IN THE FALL, WILL SCREEN BASED ON RISK FACTORS. REGULAR DENTAL CARE AND SEATBELT USE ADVISED. DISTRACT ED DRIVING DISCUSSE D. NO INDICATI ON FOR PAP SMEAR, COLONOSO CPY SCREENIN G UTD. PT DEMONSTR ATES NO SIGNIFIC ANT COGNITIV E DECLINE AND IS AT LOW RISK FOR FALLS.; RECORDED 05/02/20 13 9:38AM BY KALEIGH BERRY MA, ANNOTATI ON/ADDEN DUM Janet MACKEYC 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, [place], [address] , [facility] 6 10:37:36 Tobacco user [id number] Completed 201211/19/2013 RECORDED 11/01/19 13 11:06AM BY KALEIGH BERRY MA, ANNOTATI ON/ADDEN DUM Janet MCKENNA-C [address] [facility], [place], [address] , [facility] 6 10:37:36 Cough [id number] Completed 201311/19/2013 IMPRESSI ON: LIKELY VIRAL. PT ADVISED TO CALL IF PERSISTA NT OR BECOMES PRODUCTI VE. OTC COUGH SUPPRESS ANT RECOMMEN DED IN MEANTIME .; RECORDED 06/07/19 14 8:04AM BY MEET ROA MA, ANNOTATI ON/ADDEN DUM Janet Gage PA-C [address] [facility] [address], [place], [address] , [facility] 6 10:37:36 Impaired fasting glycemia [id number] Completed 201304/17/2017 RECORDED 06/07/19 14 8:04AM BY MEET ROA MA, OFFICE VISIT Agustin Matthews MD [address] [facility], [place], [address] , [facility] 7 10:22:07 Influenz a vaccine needed [id number] 06 Completed 201111/19/2013 RECORDED 04/10/20 12 8:17AM BY GERARDO CHAUHAN I, OFFICE VISIT Janet Gage PA-C [address] [facility] [address], [place], [address] , [facility] 6 10:37:36 Adult health examinat ion Completed 201211/19/2013 IMPRESSI ON: IMMUNIZA TION STATUS UTD (PT RECEVICE PCV23 FROM PREVIOUS EMPLOYER ) FLU ADVISED IN THE FALL, WILL SCREEN BASED ON RISK FACTORS. REGULAR DENTAL CARE AND SEATBELT USE ADVISED. DISTRACT ED DRIVING DISCUSSE D. NO INDICATI ON FOR PAP SMEAR, COLONOSO CPY SCREENIN G UTD. PT DEMONSTR ATES NO SIGNIFIC ANT COGNITIV E DECLINE AND IS AT LOW RISK FOR FALLS.; RECORDED 05/02/20 13 9:38AM BY KALEIGH BERRY MA, ANNOTATI ON/ADDEN DUM Janet Gage PA-C [address] [facility], [place], [address] , [facility] 6 10:37:36 Gastroes ophageal reflux disease [id number] Active 2013 STORY: S/P KATHIA Not Available [facility] 08:21:54 Diaphrag matic hernia 51572308 Active 2013 Not Available [facility] 2 08:21:54 Hypercal cemia 20087640 Completed 201302/25/2014 IMPRESSI ON: MILD ELEVATIO N. WILL FOLLOW FOR NOW AND IF PERSISTA NT/HIGHE R EVALUATE FURTHER. ; RECORDED 06/11/19 14 10:35AM BY AGUSTIN Castro MD, OFFICE VISIT Janet Gage PA-C [address], [place], [address] , [facility] 6 10:37:36 Pure hypercho lesterol emia 075385857 Active 2013 Not Available [facility] 2 08:21:54 Essentia l hyperten dawson 31642070 Completed 201211/19/2013 IMPRESSI ON: WELL CONTROLL ED AND REGIMEN WELL TOLERATE D. WILL CONTINUE .; RECORDED 05/02/20 13 9:38AM BY KALEIGH BERRY MA, ANNOTATI ON/ADDEN DUM Aye chadwick, [facility] 4 12:24:49 Insomnia 151737627 Active 2013 Not Available [facility] 2 08:21:54 Leukocyt osis 250282233 Completed 201303/19/2016 RECORDED 06/07/19 14 8:47AM BY AGUSTIN Castro MD, OFFICE VISIT Agustin Matthews MD [address], [place], [address] , [facility] 6 12:44:49 Obesity 378878240 Completed 201303/18/2016 IMPRESSI ON: POTENTIA L USP HEALTH CONSEQUE NCES DISCUSSE D. HEALTHY DIETARY AND EXERCISE HABITS ADVISED. ; RECORDED 06/07/19 14 8:04AM BY MEET ROA MA, OFFICE VISIT Agustin Matthews MD [address] [address], [place], [address] , [facility] 6 08:49:24 Osteoart hritis 221758491 Active 2013 STORY: B/L KNEES; IMPRESSI ON: END STAGE. HANDICAP PLACARD APPLICAT ION COMPLETE D. Not Available [facility] 2 08:21:54 Disorder of bone and articula r cartilag e 544564703 Completed 201303/18/2016 IMPRESSI ON: REGULAR WEIGHT BEARING EXERCISE AND ADEQUATE CA/VIT D INTAKE ADVISED. WILL REASSESS .; RECORDED 06/07/19 14 8:04AM BY MEET ROA MA, OFFICE VISIT Agustin Matthews MD [address] [address], [place], [address] , [facility] 6 08:49:13 Postoper ative infectio n [id number] Completed 201211/19/2013 DATE: 02/2013; ; RECORDED 06/07/19 14 8:32AM BY AGUSTIN Castro MD, ANNOTATI ON/ERICH Gage PA-C [address] [address], [place], [address] , [facility] 6 10:37:36 Hernia of anterior abdomina l wall 115856916 Completed 201204/26/2018 DATE: 02/06/20 13; STORY: S/P REPAIR/H AMDANI Agustin Matthews MD [address] [address], [place], [address] , [facility] 5 12:52:29 Mencharlesus e present 477226683 Completed 04/29/2019 Agustin Matthews MD [address] [address], [place], [address] , [facility] 9 08:56:35 Chronic kidney disease stage 3 975131207 Completed 04/17/2017 Agustin Matthews MD [address] [address], [place], [address] , [facility] 7 10:48:59 Abnormal liver function 35261246 Completed 04/17/2017 Agustin Matthews MD [address], [place], [address] , [facility] 7 10:23:12 Body mass index 30+ - obesity 791280297 Completed 04/26/2018 Agustin Matthews MD [address] [facility] [address], [place], [address] , [facility] 8 08:27:33 Body mass index 25-29 - overweig ht 285868582 Completed 03/18/2016 Agustin Matthews MD [address] [facility] [address], [place], [address] , [facility] 6 08:47:41 Diabetes mellitus 77543032 Completed 201405/11/2020 Kaleigh Berry MA null, [facility] 1 08:54:17 Vitamin D deficien cy 78569276 Active Not Available [facility] 2 08:21:54 Bilatera l cataract s 02286434 Completed 03/18/2016 Removal Reason: s/p surgery Agustin Matthews MD [address] [facility] [address], [place], [address] , [facility] 6 08:47:56 Dysphagi a 87521491 Active 2016 Not Available [facility] 2 08:21:54 Presbyes ophagus 021732821 Active 2016 Not Available [facility] 2 08:21:54 Alkaline phosphat ase above referenc e range 857805551 Active 2016 Not Available [facility] 2 08:21:54 Type 2 diabetes mellitus controll ed by diet 70058116723 9101 Active 2017 Not Available [facility] 2 08:21:54 Rupture of rotator cuff of right shoulder 39870097344 319520 Completed 201804/29/2019 Agustin Matthews MD [address], [place], [address] , [facility] 9 08:56:46 Rotator cuff tear arthropa thy 416519411 Active 2018 Not Available [facility] 2 08:21:54 Knee joint prosthes is present 70947209525 2 Active 2018 9.30.19 Not Available [facility] 2 08:21:54 Microalb uminuria 498809619 Active 2019 Not Available [facility] 2 08:21:54 Nontraum atic partial rupture of right rotator cuff 02918564258 75839 Active 2018 Not Available [facility] 2 08:21:54 Arthriti s of left glenohum eral joint 53527496945 51951 Active 2018 Not Available [facility] 2 08:21:54 Arthriti s of right knee 97549920584 94205 Completed 201809/11/2019 Agustin Matthews MD [address], [place], [address] , [facility] 0 14:43:12 Impingem ent syndrome of left shoulder region 60626121558 9104 Active 2018 Not Available [facility] 2 08:21:54 Arthriti s of left knee 75188854159 57628 Completed 201809/11/2019 Agustin Matthews MD [address], [place], [address] , [facility] 0 14:43:07 Chronic pain 40600075 Active 2018 Not Available [facility] 2 08:21:54 Impingem ent syndrome of right shoulder region 00380931951 9102 Active 2018 Not Available [facility] 2 08:21:54 Chronic pain of right upper limb 68473048452 435198 Active 2018 Not Available [facility] 2 08:21:54 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 [address], [place], [address] , [facility] 3 09:07:27 Hydronep hrosis 73648935 Active 2019 right mild Not Available [facility] 2 08:21:54 Chronic kidney disease stage 3A 801999010 Completed 202002/02/2023 Agustin Matthews MD [address] [facility] [address], [place], [address] , [facility] 3 08:08:08 Hyperten sive renal disease 57311776 Active 2020 Not Available [facility] 2 08:21:54 Osteopor osis 34380750 Active 2021 Not Available [facility] 2 08:21:54 Low back pain co-occur rent with neuralgi a of right sciatic nerve 40762949928 9105 Active 2021 Wayne Gage PA-C [address] [facility] [address], [place], [address] , [facility] 2 14:27:43 Trochant ora bursitis of right hip 76095361104 9100 Active 2021 Agustin Matthews MD [address] [facility] [address], [place], [address] , [facility] 2 13:45:43 Supraspi natus tear 411567134 Active 2021 left Agustin Matthews MD [address] [facility] [address], [place], [address] , [facility] 2 10:17:03 Hypomagn esemia 220112256 Completed 202102/02/2023 Marisol chadwick, [facility] 4 13:38:27 Moderate protein- calorie malnutri tion (weight for age 60-74 percent of standard ) 253060364 Completed 202207/30/2024 Agustin Matthews MD [address], [place], [address] , [facility] 5 11:42:15 Memory impairme nt 976342825 Active 2022 Agustin Matthews MD [address], [place], [address] , [facility] 3 14:51:25 Esophage al atresia, stenosis and fistula 994746658 Active 2022 Agustin Matthews MD [address], [place], [address] , [facility] 3 08:58:27 Gastrost marino Completed 202203/29/2024 Agustin Matthews MD [address], [place], [address] , [facility] 4 14:35:34 Thyroid nodule 788934761 Active 2022 left 1.8cm Agustin Matthews MD [address] [facility] [address], [place], [address] , [facility] 3 12:18:54 Splenic vein thrombos is 44606071 Active 2022 Agustin Matthews MD [address], [place], [address] , [facility] 3 12:20:16 Cyst of kidney 807775208 Active 2022 right upper lobe 1cm Agustin Matthews MD [address], [place], [address] , [facility] 3 12:20:50 Renal mass 121417242 Active 2022 Janet Gage PA-C [address], [place], [address] , [facility] 3 09:51:58 Nausea 060317024 Completed 202211/02/2023 Agustin Matthews MD [address], [place], [address] , [facility] 4 08:17:15 Obstruct ion of common bile duct 139622311 Active 2022 Janet Gage PA-C [address], [place], [address] , [facility] 3 12:51:26 Deep venous thrombos is 904537137 Completed 202203/29/2024 femoral Agustin Matthews MD [address], [place], [address] , [facility] 4 14:52:00 History of SARS-CoV -2 32523477462 8365364 Active 2022 Agustin Matthews MD [address], [place], [address] , [facility] 3 10:39:54 Pleural effusion 42506030 Completed 202202/02/2023 Agustin Matthews MD [address], [place], [address] , [facility] 3 08:07:36 Anemia 280914305 Active 2022 Agustin Matthews MD [address] [address], [place], [address] , [facility] 3 08:12:03 Urinary tract infectio n caused by Klebsiel la 53749587270 9100 Completed 202211/02/2023 Agustin Matthews MD [address] [address], [place], [address] , [facility] 4 08:17:23 Chronic constipa tion 243312869 Active 2023 Agustin Matthews MD [address] [address], [place], [address] , [facility] 4 15:00:46 Chronic kidney disease stage 2 716479450 Active 2023 Aye chadwick, [facility] 4 14:10:22 Hemarthr osis of knee 074001934 Completed 202303/29/2024 Agustin Matthews MD [address] [address], [place], [address] , [facility] 4 14:52:25 History of hip fracture 105838166 Active 2023 left Agustin Matthews MD [address] [address], [place], [address] , [facility] 4 16:39:07 Ischial bursitis 828147781 Active 2023 Agustin Matthews MD [address] [address], [place], [address] , [facility] 4 11:04:46 Esophage al dysmotil ity 052907860 Active 2023 Wayne Gage PA-C [address] [address], [place], [address] , [facility] 4 12:51:06 Iron deficien cy anemia 08975719 Completed 202307/03/2024 Agustin Matthews MD [address], [place], [address] , [facility] 5 12:28:26 Hypomagn esemia 031430315 Active 2023 Marisol chadwick [facility] 4 13:38:27 Lower urinary tract symptoms 093050049 Active 2023 Marisol chadwick [facility] 4 13:38:27 Closed fracture of hip 987993569 Completed 202303/29/2024 Agustin Matthews MD [address] [facility] [address], [place], [address] , [facility] 4 14:52:45 Depressi ve disorder 97948848 Active 2023 Marisol chadwick [facility] 4 13:38:27 Closed fracture of hip 188809575 Completed 202303/29/2024 Agustin Matthews MD [address], [place], [address] , [facility] 4 14:53:05 At increase d risk for falls 494659998 Active 2023 Agustin Matthews MD [address], [place], [address] , [facility] 4 14:38:12 Pressure injury of sacral region of back 619412395 Completed 202307/30/2024 Agustin Matthews MD [address] [facility] [address], [place], [address] , [facility] 5 11:42:28 Hernia of anterior abdomina l wall 612863422 Active 2024 DATE: 02/06/20 13; STORY: S/P REPAIR/H AMDANI Agustin Matthews MD [address] [facility] [address], [place], [address] , [facility] 5 12:52:29 Pressure injury of buttock stage II 68705180430 628798 Completed 202407/30/2024 Agustin Matthews MD [address] [facility] [address], [place], [address] , [facility] 5 11:45:26 Problem Notes None recorded. Procedures Surgical History Date Name Laterality Status Provider Name and Address Organization Details Recorded Time 03/29 Advanced Care Planning completed Alycia Farmer LPN [facility] 4 13:54:08 01/17 open reduction of fracture with internal fixation completed Dixie Espinal RN [facility] 4 09:29:57 01/26 attention to feeding tube completed Agustin Matthews MD [address] [facility] [address], [place], [address] , [facility] 3 11:38:48 01/19 Advanced Care Planning completed Agustin Matthews MD [address] [facility] [address], [place], [address] , [facility] 3 14:42:34 11/05 closed reduction of fracture of left femur and internal fixation using dynamic hip screw plate completed Agustin Matthews MD [address] [facility] [address], [place], [address] , [facility] 3 23:01:33 10/21 Chronic Pain Assessment completed Kaci Mena MA [facility] 3 10:25:40 07/11 Egd diagnostic brush wash completed Agustin aMtthews MD [address], [place], [address] , [facility] 3 22:09:20 06/20 percutaneous endoscopic gastrostomy completed Agustin Matthews MD [address], [place], [address] , [facility] 3 22:09:55 06/20 Laparotomy completed Agustin Matthews MD [address], [place], [address] , [facility] 3 08:09:28 06/20 exploratory laparotomy completed Agustin Matthews MD [address], [place], [address] , [facility] 3 09:00:40 06/20 gastrostomy completed Agustin Matthews MD [address], [place], [address] , [facility] 3 09:01:07 06/13 Egd diagnostic brush wash completed Agustin Matthews MD [address], [place], [address] , [facility] 3 08:08:18 05/20 Egd balloon dil esoph30 mm/> completed Agustin Matthews MD [address], [place], [address] , [facility] 3 07:12:10 08/04 Most Recent Bone Density completed Foreign Mena MA [facility] 3 14:02:00 08/04 Most Recent Mammogram completed Tessa Stinson [facility] 2 16:00:58 08/04 Mammogram both breasts completed Tessa Stinson [facility] 2 16:00:33 06/01 Diabetic Foot Exam (Monofilament) completed Agustin Matthews MD [address], [place], [address] , [facility] 2 10:01:09 01/25 dilation of esophagus completed Agustin Matthews MD [address], [place], [address] , [facility] 2 09:59:21 11/13 Chronic Pain Assessment completed Kaleigh Berry MA [facility] 1 09:54:06 11/07 esophagogastroduodenoscopy completed Agustin Matthews MD [address] [facility] [address], [place], [address] , [facility] 1 20:05:48 08/18 shoulder injection completed Agustin Matthews MD [address] [facility] [address], [place], [address] , [facility] 1 21:48:46 06/01 esophagogastroduodenoscopy completed Agustin Matthews MD [address] [facility] [address], [place], [address] , [facility] 1 20:38:47 05/11 Six-Item Cognitive Test completed Kaleigh Berry MA [facility] 1 08:50:37 04/11 Esophageal motility completed Onelia Rodas [facility] 0 14:21:53 05/10 total knee replacement completed Agustin Matthews MD [address] [facility] [address], [place], [address] , [facility] 0 16:35:40 04/29 Mini-Cog Test completed Lilibeth Delarosa MA [facility] 9 08:35:06 02/04 total knee replacement completed Agustin Matthews MD [address], [place], [address] , [facility] 9 08:51:01 01/10 cardiovascular stress test using pharmacologic stress agent completed Agustin Matthews MD [address], [place], [address] , [facility] 9 23:30:50 04/26 Mini-Cog Test completed Gerardo Yadav [facility] 8 08:18:31 04/17 Fall Risk Assessment completed Kaleigh Berry MA [facility] 7 09:54:29 04/17 Mini-Cog Test completed Kaleigh Berry MA [facility] 7 09:56:45 03/18 Fall Risk Assessment completed Kaleigh Berry MA [facility] 6 08:32:31 03/18 Mini-Cog Test completed Kaleigh Berry MA [facility] 6 08:33:06 02/26 Fall Risk Assessment completed Kaleigh Berry MA [facility] 5 08:40:41 02/26 Mini-Cog Test completed Kaleigh Berry MA [facility] 5 08:40:41 02/21 Dxa bone density ann vrt fx completed Yvonne Berry MA [facility] 6 09:14:59 02/19 Fall Risk Assessment completed Kaleigh Berry MA [facility] 4 13:18:45 02/19 Mini-Cog Test completed Kaleigh Berry MA [facility] 4 13:18:45 02/14 transverse colectomy completed Agustin Matthews MD [address], [place], [address] , [facility] 1 20:12:15 02/05 Hernia Repair completed Agustin Matthews MD [address] [facility] [address], [place], [address] , [facility] 9 09:04:28 04/13 Unlisted procedure stomach completed Agustin Matthews MD [address] [facility] [address], [place], [address] , [facility] 1 20:11:20 12/23 Date of Last Colonoscopy completed Kaleigh Berry MA [facility] 5 08:40:39 12/23 Colonoscopy completed Kaleigh Berry MA [facility] 6 09:15:40 01/06 Back Surgery completed Kaleigh Berry MA [facility] 2 09:37:02 Laminotomy single lumbar completed Agustin Matthews MD [address] [facility] [address], [place], [address] , [facility] 6 08:55:26 D & c after delivery completed CHARISSA Trejo [address] [facility] [address], [place], [address] , [facility] 9 13:14:42 Joint Replacement completed Kaleigh Berry MA [facility] 2 09:37:02 Dilation and Curettage completed Ana Berry MA [facility] 2 09:37:03 Adenoidectomy completed Kaleigh Berry MA [facility] 2 09:37:03 Tubal Ligation completed Kaleigh Berry MA [facility] 2 09:37:03 Hysterectomy completed Kaleigh AndersonrodneyKADEN [facility] 4 13:18:44 Tonsillectomy completed Kaleigh Monicarodney KADEN [facility] 4 13:18:44 Appendectomy completed Kaleigh Jackhaley KADEN [facility] 4 13:18:44 Imaging Results Imaging Date Name Status LastModified by Organiz ation Details LastModified Time 05/23/2024 XR, abdomen completed [facility] [address] [place], [address], 07/01/2024 13:15:55 Procedure Notes None recorded. Medical Equipment None Reported. Allergies No known drug allergies Medications Name Sig Start Date Stop Date Status Note LastModified by Organization Details LastModified Time Prescript ion - Prior Authoriza tion Request 06/01 completed Not Available Not Available Not Available Miralax 17 gram oral powder packet Take 1 packet as needed by oral route as directed . 2023 active Not Available Not Available Not Avai lable Flomax 0.4 mg capsule Take 1 capsule every day by oral route as directed . 10/30 completed Not Available Not Available Not Available Miralax 17 gram/dose oral powder Take as needed by oral route as needed. 10/30 completed Not Available Not Available Not Available Lopressor HCT tablet Take 1 tablet twice a day by oral route. 09/16 completed 12.5 mg Not Available Not Available Not Available Colace 100 mg capsule Take 1 capsule twice a day by oral route. 09/16 completed Not Available Not Available Not Available Dilaudid 2 mg tablet Take 1 tablet every 4 hours by oral route as needed. 10/17 completed patient no longer taking - ran out and it doesn't work as good as what Dr Carr was giving me Not Available Not Available Not Available ketoconaz ole 2 % shampoo APPLY TOPICALL Y TO THE AFFECTED AREA(S), LATHER, LEAVE FOR 5 MINUTES & THEN RINSE OFF ONCE DAILY active Not Available Not Available No t Available Vitamin C 500 mg tablet Take 1 tablet every day by oral route. 09/16 completed Not Available Not Available Not Available trazodone 50 mg tablet 01/26 completed Not Available Not Available Not Available hydrocodo ne 5 mg-acetam inophen 325 mg tablet Take 1 tablet every day by oral route as needed. 10/21 completed Not Available Not Available Not Available senna 8.6 mg tablet Take 2 tablets every day by oral route at bedtime. 07/30 completed Not Available Not Available Not Available fluconazo le 200 mg tablet TAKE 1 TABLET BY MOUTH TWICE A DAY FOR 21 DAYS 04/18 completed Not Available Not Available Not Available meloxicam 15 mg tablet 01/26 completed Not Available Not Available Not Available ondansetr on HCl 4 mg tablet TAKE 1 TABLET BY MOUTH EVERY 8 HOURS NEEDED FOR 5 DAYS active prn Not Available Not Available No t Available clonazepa m 0.5 mg tablet DAILY NEEDED 06/06 completed RECORDED 06/07/19 14 8:03AM BY AGUSTIN Castro MD, MEDICATI ON AUTO-LENNOX CTIVATIO N; Not Available Not Available Not Available simvastat in 10 mg tablet Take 1 tablet every day by oral route for 90 days 2024 active Not Available Not Available Not Avai lable atenolol 50 mg-chlort halidone 25 mg tablet Take 1 tablet every day by oral route for 90 days. 04/27 completed Per 22 discharg e Not Available Not Available Not Available melatonin 3 mg tablet Take 1 tablet as needed by oral route at bedtime. active Not Available Not Available No t Available amlodipin e 5 mg tablet TAKE 1 TABLET BY MOUTH EVERY DAY active Not Available Not Available No t Available sulfameth oxazole 800 mg-trimet hoprim 160 mg tablet TAKE 1 TABLET BY MOUTH EVERY 12 HOURS FOR 5 DAYS 03/09 completed Not Available Not Available Not Available omeprazol e 40 mg capsule,d elayed release TAKE 1 CAPSULE BY MOUTH EVERY DAY FOR 90 DAYS active Not Available Not Available No t Available acetamino phen 500 mg tablet Take 2 tablets every 6 hours by oral route as needed. active Not Available Not Available No t Available triamcino lone acetonide 0.1 % topical cream APPLY TOPICALL Y TWICE A DAY NEEDED FOR 14 DAYS 05/23 completed Not Available Not Available Not Available amoxicill in 500 mg tablet 02/28 completed Not Available Not Available Not Available Ensure High Protein oral liquid Take 240 mL twice a day by oral route for 30 days. 05/27 completed Not covered via [employer], Patient will pay out of pocket Not Available Not Available Not Available oxycodone -acetamin ophen 5 mg-325 mg tablet Take 1 tablet twice a day by oral route as needed for 5 days. 01/03 completed Not Available Not Available Not Available MagOx 400 mg (241.3 mg magnesium ) tablet Take 1 tablet every day by oral route as directed . 12/24 completed Not Available Not Available Not Available prednisol one acetate 1 % eye drops,jason pension 03/18 completed Not Available Not Available Not Available aspirin 325 mg tablet,de layed release Take 1 tablet by oral route. 01/26 completed Not Available Not Available Not Available Lidoderm 5 % topical patch APPLY 1 PATCH BY TOPICAL ROUTE ONCE DAILY (MAY WEAR UP TO 12HOURS. ) 01/03 completed to R shoulder Not Available Not Available Not Available amlodipin e 10 mg tablet TAKE 1 TABLET BY MOUTH EVERY DAY 05/29 completed Not Available Not Available Not Available pantopraz ole 40 mg tablet,de layed release 03/07 completed Not Available Not Available Not Available ferrous sulfate 325 mg (65 mg iron) tablet Take 1 tablet twice a day by oral route as directed . 07/01 completed Not Available Not Available Not Available esomepraz ole magnesium 40 mg capsule,d elayed release TAKE 1 CAPSULE BY MOUTH EVERY DAY active Not Available Not Available No t Available diphenhyd ramine 25 mg tablet Take 1 tablet as needed by oral route at bedtime. 09/16 completed Not Available Not Available Not Available metoprolo l tartrate 50 mg tablet Take 0.5 tablets twice a day by oral route. 10/21 completed Not Available Not Available Not Available omeprazol e 20 mg capsule,d elayed release Take 1 capsule every day by oral route for 90 days. 09/16 completed Not Available Not Available Not Available aspirin 81 mg chewable tablet DAILY active RECORDED 04/10/20 12 8:44AM BY AGUSTIN Castro MD, ANNOTATI ON/ERICH DUM; Not Available Not Available Not Available aspirin 81 mg tablet Take 1 tablet every day by oral route. 09/16 completed Not Available Not Available Not Available gabapenti n 100 mg capsule TAKE 1 CAPSULE BY MOUTH THREE TIMES A DAY FOR 30 DAYS 04/29 completed Not Available Not Available Not Available ergocalci ferol (vitamin D2) 1,250 mcg (50,000 unit) capsule Take 1 capsule every week by oral route. 04/17 completed Not Available Not Available Not Available nystatin 100,000 unit/gram topical powder TWO TIMES DAILY, NEEDED 2013 active RECORDED 06/07/19 14 8:41AM BY AGUSTIN Castro MD, OFFICE VISIT; Not Available Not Available Not Available Transderm -Scop 1 mg over 3 days transderm al patch Apply 1 patch every 72 hours by transder mal route as needed. 04/17 completed Not Available Not Available Not Available warfarin 1 mg tablet 08/22 completed Not Available Not Available Not Available celecoxib 100 mg capsule TAKE 1 CAPSULE TWICE DAILY NEEDED active Not Available Not Available No t Available ondansetr on 4 mg disintegr ating tablet DISSOLVE 1 TABLET UNDER THE TONGUE EVERY 6 HOURS NEEDED FOR 10 DAYS 07/01 completed Not Available Not Available Not Available metoclopr amide 10 mg tablet TAKE 1 TABLET BY MOUTH EVERY DAY NEEDED 10/30 completed Not Available Not Available Not Available Dulcolax (bisacody l) 5 mg tablet,de layed release Take 1 tablet every day by oral route as directed . 09/16 completed Not Available Not Available Not Available Reglan 5 mg tablet Take 1 tablet every day by oral route before meals. 01/03 completed Not Available Not Available Not Available oxycodone 5 mg tablet Take 1 tablet every day by oral route as needed. 07/30 completed Not Available Not Available Not Available ferrous sulfate 134 mg (27 mg iron) tablet Take 1 tablet twice a day by oral route. 05/12 completed Not Available Not Available Not Available Prilosec OTC 20 mg tablet,de layed release DAILY 2013 active RECORDED 05/21/19 14 2:44PM BY AGUSTIN Castro MD, REFILL REQUEST; Not Available Not Available Not Available metoprolo l tartrate 25 mg tablet 1 po bid active Not Available Not Available Not Available duloxetin e 30 mg capsule,d elayed release TAKE 1 CAPSULE BY MOUTH TWICE A DAY active Not Available Not Available No t Available lactulose 10 gram/15 mL oral solution TAKE 15 ML EVERY DAY BY ORAL ROUTE NEEDED FOR 30 DAYS. active Not Available Not Available No t Available Vicodin DAILY NEEDED 12/12 completed RECORDED 12/13/19 13 1:46PM BY ROLA ZHENG ON/ERICH AYERS;THIS ORDER DISCONTI NUED PER MEDI-SPA N. Not Available Not Available Not Available Aspirin EC take 1 dab daily po 01/26 completed Not Available Not Available Not Available APAP 1g tid 10/30 completed Not Available Not Available Not Available multivita min DAILY active RECORDED 06/07/19 14 8:04AM BY MEET ROA MA, OFFICE VISIT; Not Available Not Available Not Available Oxycodone HCl-Aceta minophen 5mg , take every 12 hours as needed 10/30 completed Not Available Not Available Not Available diclofena c 1 % topical gel APPLY to left knee twice daily as needed 07/30 completed Not Available Not Available Not Available melatonin 5 mg tablet Take 1 tablet as needed by oral route at bedtime. 10/30 completed Per discharg e SN[facility] taking 3 mg at night Not Available Not Available Not Available gatifloxa harris 0.5 % eye drops 03/18 completed Not Available Not Available Not Available Vitamin D3 50 mcg (2,000 unit) capsule TAKE ONE CAPSULE BY MOUTH EVERY DAY 09/16 completed Not Available Not Available Not Available lactulose 10 gram/15 mL (15 mL) oral solution Take 15 mL every day by oral route as directed . 10/30 completed Not Available Not Available Not Available Ilevro 0.3 % eye drops,jason pension 03/18 completed Not Available Not Available Not Available apixaban 5 mg tablet Take 1 tablet twice a day by oral route. 09/16 completed Not Available Not Available Not Available ascorbic acid (vitamin C) 500 mg capsule Take 1 capsule every day by oral route as directed . 2023 active Not Available Not Available Not Avai lable metoprolo l tartrate 37.5 mg tablet 1 po bid 07/30 completed Not Available Not Available Not Available Shingrix (PF) 50 mcg/0.5 mL intramusc ular suspensio n, kit 04/29 completed Not Available Not Available Not Available magnesium 400 mg (as magnesium oxide) tablet Take 1 tablet twice a day by oral route as directed . 05/23 completed Not Available Not Available Not Available melatonin 3 mg capsule Take 1 capsule as needed by oral route at bedtime. 01/19 completed Not Available Not Available Not Available aspirin 81 mg capsule Take 1 capsule every day by oral route. 10/30 completed Not Available Not Available Not Available pantopraz ole sodium (bulk) 40 mg , 1 tablet by mouth once a day 03/07 completed Not Available Not Available Not Available Vitals Date Recorded Body height Body mass index (BMI) Body weight Oxygen saturation Oxygen saturation in Arterial blood by Pulse oximetry Heart rate Body temperature Systolic blood pressure Diastolic blood pressure Provider Name and Address Organization Details Last Updated DateTime 4 160.66 cm 20.1 kg/m2 25398.3 3 g 99 % 99 % 86 /min 97.5 [degF] 122 mm[Hg] 82 mm[Hg] Lilibeth Delarosa MA [facility] 4 13:08:11 Date Recorded Body height Provider Name an d Address Organization Details Last Updated DateTime 05/23/2024 160.66 cm [facility] 05/23/2024 11:27:10 Date Recorded Body height Body mass index (BMI) Body weight Heart rate Oxygen saturation Oxygen saturation in Arterial blood by Pulse oximetry Body temperature Systolic blood pressure Diastolic blood pressure Provider Name and Address Organization Details Last Updated DateTime 5 160.66 cm 19.9 kg/m2 33946.9 4 g 78 /min 98 % 98 % 98 [degF] 118 mm[Hg] 79 mm[Hg] Sita robles MA [facility] 5 12:54:03 Date Recorded Body height Body mass index (BMI) Body weight Oxygen saturation Oxygen saturation in Arterial blood by Pulse oximetry Heart rate Body temperature Systolic blood pressure Diastolic blood pressure Provider Name and Address Organization Details Last Updated DateTime 5 160.66 cm 20.8 kg/m2 90619.7 g 99 % 99 % 83 /min 97.6 [degF] 129 mm[Hg] 81 mm[Hg] Lilibeth Delarosa MA [facility] 5 11:06:24 Social History Question Answer Notes LastModified by Organizat ion Details LastModified Time Tobacco Smoking Status Former Smoker quit 1960 Not Available [facility] 03/10/2020 03:36:44 Do You Have An Advance Directive? Yes HCP/Dtr-Chapin Trivedi-Abdi castellanos Information not available 01/19/2023 What Is Your Level Of Alcohol Consumption? None [id number] Information not available 03/10/2020 Is Blood Transfusion Acceptable In An Emergency? Yes [id number] Information not available 03/10/2020 What Is Your Level Of Caffeine Consumption? Moderate No Coffee Or Tea. Likes Soda Information not available 01/19/2023 How Much Tobacco Do You Chew? None Information not available 06/01/2021 Are You Currently Employed? No [id number] Information not available 03/10/2020 Are You Deaf Or Do You Have Serious Difficulty Hearing? No Information not available 11/12/2021 What Type Of Diet Are You Following? REGULAR [id number] Information not available 03/10/2020 Which Illicit Or Recreational Drugs Have You Used? None [id number] Information not available 03/10/2020 Do You Or Have You Ever Used E-cigarettes Or Vape? 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 16+yearssinc elastcigaret te Information not available 06/01/2021 Live Alone Or With Others? With Others Son (Abdi), Dog (Madiha) [email or web address] Information not available 01/19/2023 Do You Take Precautions To Prevent Distracted Driving? Yes Information not available 02/26/2015 How Often Do You Need To Have Someone Help You When You Read Instructions, Pamphlets, Or Other Written Material From Your Doctor Or Pharmacy? Never Information not available 02/26/2015 Have You Served In The ? Yes Son Information not available 03/18/2016 *AWV ONLY* Are You Presently Prescribed Opioid Medication By PCP Or Specialist? If YES -Provider Assess The Benefit For Other, Non-opioid Pain Therapies Instead, Even If The Patient Does Not Have OUD But Is Possibly At Risk. No Information not available 01/27/2020 Marital Status Informatio n not available 11/12/2021 What Was The Date Of Your Most Recent Tobacco Screening? 03/29/2024 [email or web address] Information not available 03/29/2024 How Many Children Do You Have? 6 4 Sons, 2 Dtrs, 12 Grandchildren [id number] Information not available 03/10/2020 What Is Your Current Pack Years? 30ormorepack years Information not available 11/12/2021 Do You Use Protection During Sex? No Information not available 06/01/2021 Difficulty Reading? No Information not available 11/12/2021 Do You Use Your Seat Belt Or Car Seat Routinely? Yes Information not available 06/01/2021 Seat Belts Used Routinely Yes Information not available 11/12/2021 Are You Sexually Active? No Information not available 06/01/2021 Smoke Alarm In Home Yes Information not available 11/12/2021 Do You Have Smoke And Carbon Monoxide Detectors In Your Home? No Information not available 06/01/2021 At What Age Did You Start Smoking Tobacco? 19 [id number] Information not available 03/10/2020 Are You Passively Exposed To Smoke? No Information not available 02/19/2014 Do You Or Have You Ever Used Smokeless Tobacco? Never Used Smokeless Tobacco [id number] Information not available 03/10/2020 How Much Tobacco Do You Smoke? No Information not available 06/01/2021 Do You Use Any Illicit Or Recreational Drugs? No Information not available 04/28/2023 Do You Use Sunscreen Routinely? Yes [id number] Information not available 03/10/2020 How Many Years Have You Smoked Tobacco? 5 [id number] Information not available 03/10/2020 Difficulty Watching TV? No Information not available 11/12/2021 Do You Or Have You Ever Used Any Other Forms Of Tobacco Or Nicotine? No Information not available 04/28/2023 Sex: Unknown Functional Status Question Answer Note LastModified by Organizat ion Details LastModified Time Do you have difficulty walking or climbing stairs? No Information not available 11/12/2021 [address]y [address] at night? No Information no t available 11/12/2021 Are you able to walk? YESASSIST Information not available 01/19/2023 Do you have difficulty doing errands alone? No Information not available 11/12/2021 Are you able to care for yourself? Yes [id number] Information not available 03/10/2020 Do you have difficulty dressing or bathing? No Information not available 11/12/2021 What is your exercise level? None Information not available 01/19/2023 Mental Status Question Answer Note LastModified by Organization D etails LastModified Time Do you have difficulty concentrating, remembering or making decisions? No Information no t available 11/12/2021 Family History Relationship Description Onset Age of this Age Resolved Age Notes LastModified by Organization Details LastModified Time Son Harmful pattern of use of alcohol lory Not available 05/2015 09:40:18 Father Malignant neoplastic disease Not available 2021 08:45:03 Father Malignant tumor of stomach Not available 2021 08:45:03 Mother Dementia [email or web address] Not avail able 08/07/2015 09:40:18 Brother Obstructive sleep apnea syndrome Not available 2021 08:45:03 Unspecified Relation Alzheimer's disease abolcun Not available 2021 09:36:39 Daughter Pulmonary embolism [email or web address] Not available 01/19 14:27:52 Medical History Condition Response Coronary Artery Disease N Other N Gout N Kidney Stones N Blood Diseases N Hyperthyroidism N Breast Cancer N mrsa exposure N Hypothyroidism N Depression N COPD N Lung Disease N Developmental or Behavioral Disorders N Defects or Inherited Disease N Breast Problem N Anesthesia Complications N Headaches/Migraines N Varicose Veins N Anxiety Disorder N Muscle, Joint, or Bone Problems N Obesity N Vision or Eye Problems N Arthritis N Head Injury/Concussion N Polyps N Infertility N Mental Disorder N Congenital Anomalies N Acid Reflux (GERD) Y Cancer N Stroke N ADHD N Endometriosis N High Cholesterol Y Liver Disease N Headaches N Fibromyalgia N Kidney Disease N Heart Problems N Ear or Hearing Problems N Hospitalizations N Thyroid Problems N GI Problems Y Developmental Delay N Acne N Skin Problems N Eating Disorder N Anemia N Constipation N Bladder Problems N Mental Illness N Ovarian Cancer N Diabetes N Bedwetting N Blood Transfusions N Seizures/Epilepsy N Heart Problems/Murmur N Tuberculosis N AIDS/HIV N Congestive Heart Failure (CHF) N Eczema N Diverticulitis N Abuse/Domestic Violence N Asthma N Allergies N Reflux/GERD N Hepatitis N Heart Disease N Pulmonary Embolism N Hypertension Y Chicken Pox Y Autism Spectrum Disorder (ASD) N Osteoporosis N Gynecological History Statement/Question Response Date of Last Pap Smear Most Recent Mammogram 08/04/2021 Date of Last Colonoscopy 12/23/2009 Most Recent Bone Density 08/04/2021 Obstetrics History GPAL:G 0 P 0 0 0 0 Immunizations Vaccine Type Date Status Note Provider Nam e and Address Organization Details Recorded Time Influenza, split virus, quadrivalent, preservative 7 completed Onelia chadwick [facility] 09/14/2021 15:19:00 Influenza, split virus, trivalent, preservative 8 completed Onelia chadwick [facility] 09/14/2021 15:19:00 zoster recombinant 9 completed Kaleigh Berry [place] farrukh [facility] 11/12/2021 09:48:13 COVID-19, mRNA, LNP-S, PF, 100 mcg/0.5mL dose or 50 mcg/0.25mL dose 1 [facility] 09:48:14 COVID-19, mRNA, LNP-S, PF, 100 mcg/0.5mL dose or 50 mcg/0.25mL dose 1 [facility] 15:19:00 Influenza, adjuvanted, quadrivalent, PF 1 completed Onelia chadwick [facility] 09/14/2021 15:19:00 COVID-19, mRNA, LNP-S, PF, 100 mcg/0.5mL dose or 50 mcg/0.25mL dose 1 completed Onelia chadwick [facility] 09/14/2021 15:19:00 COVID-19, mRNA, LNP-S, PF, 100 mcg/0.5mL dose or 50 mcg/0.25mL dose 2 completed KADEN Morrison, [facility] 11/12/2021 09:48:13 zoster recombinant 2 [facility]12[facility]21 09:48:14 Influenza, high-dose, trivalent, PF 6 completed KADEN Morrison, [facility] 11/12/2021 09:48:13 Influenza, split virus, trivalent, PF 4 completed KADEN Morrison, [facility] 11/12/2021 09:48:13 Tdap 5 [facility]12[facility]21 09:48:14 Influenza, high-dose, trivalent, PF 9 completed KADEN Morrison [facility] 11/12/2021 09:48:14 Influenza, high-dose, quadrivalent, PF 0 completed KADEN Morrison, [facility] 11/12/2021 09:48:14 Influenza, high-dose, quadrivalent, PF 0 completed KADEN Morrison, [facility] 11/12/2021 09:48:14 Influenza, split virus, quadrivalent, PF 5 completed KADEN Morrison, [facility] 11/12/2021 09:48:14 Pneumococcal conjugate PCV 13 4 completed KADEN Morrison, [facility] 11/12/2021 09:48:14 pneumococcal polysaccharide PPV23 5 completed KADEN Morrison, [facility] 11/12/2021 09:48:14 Influenza, high-dose, quadrivalent, PF 3 completed KADEN Urena [facility] 09/16/2022 13:14:51 zoster live 9 completed Onelia chadwick, [facility] 09/14/2021 15:19:00 Influenza, split virus, trivalent, preservative 2 completed Onelia chadwick [facility] 09/14/2021 15:19:00 Influenza, split virus, trivalent, preservative 3 completed Oneliaalida chadwick, [facility] 09/14/2021 15:19:00 Influenza, high-dose, quadrivalent, PF 3 completed Agustin Matthews MD [address], [address], [facility] 02/08/2023 16:38:56 Past Encounters Encounter ID Performer Location Encounter Start Date Encounter Closed Date Diagnosis/Indication Diagnosis SNOMED-CT Code Diagnosis ICD10 Code Diagnosis Note [id number] [facility]Comm erce [address] [facility] [place] [address] 04/10/2012 00:00:00 [id number] autoEComm erce [address] [facility] [place] [address] 10/31/2012 00:00:00 [id number] autoEComm erce [address] [facility] [place] [address] 05/07/2013 00:00:00 [id number] autoEComm erce [address] [facility] [place] [address] 06/07/2013 00:00:00 [id number] Agustin Matthews MD Main Office [address] [place] [address] 02/19/2014 12:50:14 02/19/2014 14:00:33 Adult health examination [id number] Will update immunizati on status and screen based on risk factors. Regular dental and ophtho care advised as well as sunscreen and seatbelt use. Colon breast and cervical cancer screening are utd. Pt currently demonstrat es low risk for falls and no significan t cognitive decline. Advance directives discussed. Needs infl uenza immunization 031746828 Essential hypertension 45446948 BP at goal, continue current regimen. Screening for malignant neoplasm of breast 530313690 Menopause present 320151116 Obesity 595601647 Impaired f asting glycemia 930606391 Pure hypercholesterolemia 686745299 Administra tion of pneumococcal vaccine 03774903 Gastroesop hageal reflux disease 350285455 Stable. Continue current regimen. Osteoarthritis 208910692 Using rx appropriat pilar/sparin gly. Rx refilled. [id number] Agustin Matthews MD Main Office [address] [place] [address] 08/22/2014 08:01:22 08/22/2014 08:43:15 Essential hypertension 42391199 Pure hypercholesterolemia 098730619 Well controlled and regimen tolerated. Continue current dose. Chronic ki dney disease stage 3 315361644 Body mass index 30+ - obesity 843298015 Leukocytosis 117027474 W ill follow. Impaired f asting glycemia 526545141 Will follow. If A1C >6.5 will enter diabetes diagnosis. Low CHO diet, regular exercise and weight loss advised. Osteoarthritis 978282763 Using rx appropriat pilar/sparin gly. Rx refilled. [id number] Agustin Matthews MD Main Office [address] [facility] [address] [facility] [place] [address] 02/26/2015 08:04:02 02/26/2015 09:30:12 Adult health examination 882298423 Z00.00 Will update immunizati on status and screen based on risk factors. Regular dental and ophtho care advised as well as sunscreen and seatbelt use. Colon breast and cervical cancer screening are utd. Pt currently demonstrat es low risk for falls and no significan t cognitive decline. Advance directives discussed. At [facility] risk for falls 926373971 Z91.81 Needs infl uenza immunization 705484309 Z23 Body mass index 25-29 - overweight 081613048 E66.3 Essential hypertension 55828549 I10 Impaired f asting glycemia 799007241 R73.01 Will follow. If A1C >6.5 will enter diabetes diagnosis. Low CHO diet, regular exercise and weight loss advised. Administra tion of pneumococcal vaccine 30791344 Z23 Administra tion of diphtheria, pertussis, and tetanus vaccine 292226237 Z23 Leukocytosis 849761683 D 72.829 Will follow. Pure hypercholesterolemia 678356143 E78.0 Well controlled and regimen tolerated. Continue current dose. Osteoarthritis 001152135 M19.90 Using rx appropriat pilar/sparin gly. Rx refilled. Osteopenia 419023904 M85 .80 [id number] Janet Gage PA-C Main Office [address] [facility] [address] [facility] [place] [address] 08/07/2015 09:28:54 08/07/2015 10:38:02 Pre-surgery evaluation 390614941 Z01.818 Based on history, PE and EKG, pt. has no contraindi cations to the bilateral cataract procedures pending labs ; CBC and BMP . All requested informatio n will be forwarded to the surgeon. Bilateral cataracts 9572 2003 H26.9 [id number] Agustin Matthews MD Main Office [address] [address] 08/28/2015 08:06:56 08/28/2015 09:03:38 Essential hypertension 74278905 I10 Pure hypercholesterolemia 025156919 E78.0 Well controlled and regimen tolerated. Continue current dose. Osteoarthritis 057451372 M19.90 Using rx appropriat pilar/sparin gly. Rx refilled. Diabetes mellitus 392026 09 E11.9 Discussed referral to [facility] agent but pt declines. States that she is aware of what she needs to do. Will start metformin if A1c exceeds 7. Gastroesop hageal reflux disease 314044452 K21.9 Asymptomat ic off of PPI. Will monitor. [id number] Agustin Matthews MD Main Office [address] [address] 03/18/2016 08:13:26 03/18/2016 09:29:10 Adult health examination 003189293 Z00.00 Will update immunizati on status and screen based on risk factors. Regular dental and ophtho care advised as well as sunscreen and seat belt use. Colon breast and cervical cancer screening are utd. Pt currently demonstrat es low risk for falls and no significan t cognitive decline. Advance directives discussed. Influenza vaccine needed 3785504151 106 Z23 Body mass index 30+ - obesity 716693050 E66.01 Diabetes mellitus 797986 09 E11.9 Osteopenia 651370052 M85 .80 Screening for malignant neoplasm of breast 249035438 Z12.39 Pure hypercholesterolemia 165081458 E78.01 Well controlled and regimen tolerated. Continue current dose. [id number] Agustin Matthews MD Main Office [address] [address] 04/17/2017 09:08:31 04/17/2017 10:51:09 Adult health examination 461585453 Z00.00 Immunizati on status utd will screen based on risk factors. Regular dental and ophtho care advised as well as sunscreen and seat belt use. Colon breast and cervical cancer screening are utd. Pt currently demonstrat es low risk for falls and no significan t cognitive decline. Advance directives discussed. Body mass index 30+ - obesity 581371624 Z68.33 Obesity 386182897 E66.9 Pure hypercholesterolemia 053832300 E78.01 Well controlled and regimen tolerated. Continue current dose. Osteopenia 226379598 M85 .80 Vitamin D deficiency 347 02597 E55.9 Diabetes mellitus 975120 09 E11.9 Well controlled with diet only. Will monitor. Essential hypertension 92094897 I10 Well controlled on current regimen. Will monitor with wt loss secondary to esophageal dysmotilit y and change in eating habits. [id number] Agustin Matthews MD Main Office [address] [facility] [address] [place] [address] 10/09/2017 08:15:42 10/09/2017 08:47:31 Essential hypertension 88237080 I10 Will reduce BB/diureti c combo dosing in context of low BP and weight loss. Osteoarthritis 719799675 M19.90 Using rx appropriat pilar/sparin gly. Rx filled last month. Varicella vaccination 68 600448 Z23 Pure hypercholesterolemia 931403551 E78.01 Well controlled and regimen tolerated. Continue current dose. Excessive weight loss 30 6489962 R63.4 Secondary to esophageal issues and dietary changes. Will monitor. Diabetes mellitus 289940 09 E11.9 Well controlled with diet only. Will monitor. [id number] Agustin Matthews MD Main Office [address] [facility] [address] [facility] [place] [address] 04/26/2018 07:59:48 04/26/2018 09:08:27 Adult health examination 897993159 Z00.00 Immunizati on status utd, Shingrix advised via local pharmacy. Fall prevention referral offered but declined. Advised to call if changes her mind. Will screen based on risk factors. Regular dental and ophtho care advised as well as sunscreen and seat belt use. Colon breast and cervical cancer screening are utd. Pt currently demonstrat es low risk for falls and no significan t cognitive decline. Advance directives discussed. Screening for malignant neoplasm of breast 282748736 Z12.39 Obesity 935812616 E66.9 Pure hypercholesterolemia 126557754 E78.01 Well controlled and regimen tolerated. Continue current dose. Osteopenia 313292723 M85 .80 Overdue for f/u. Regular weight bearing exercise advised. Vitamin D deficiency 347 37776 E55.9 Will confirm adequate supplement ation. Diabetes mellitus 005130 09 E11.9 Well controlled with diet only. Will monitor. Essential hypertension 95352794 I10 Well controlled on current regimen. Will monitor with wt loss secondary to esophageal dysmotilit y and change in eating habits. Type 2 sonja betes mellitus controlled by diet 3107323951 48318 E11.9 Osteoarthritis 692374290 M19.90 Using rx appropriat pilar/sparin gly. Rx filled last month. Excessive weight loss 30 3947152 R63.4 Secondary to esophageal issues and dietary changes. Will monitor. [id number] Agustin Matthews MD Main Office [address] [facility] [place] [address] 11/20/2018 08:06:58 11/20/2018 09:29:02 Diabetes mellitus 04474039 E11.9 Well controlled with diet only. Will monitor. Essential hypertension 04536396 I10 Not at goal today but pain and stress are mitigating factors. Osteoarthritis 126844154 M19.90 Using hydrocodon e appropriat pilar/sparin gly. Rx filled last month. Going for left TKR on 02/04. Rupture of rotator cuff of right shoulder 0002349823 9970171 M75.101 New diagnosis. Pt is deferring surgical interventi ons at this time. Exertional hypertension 253662327 I15.8 Stress test warranted for preop assessment . Pt unable to walk on treadmill. [id number] Germán Amaya MD Main Office [address] [facility] [address] [facility] [place] [address] 01/18/2019 12:33:35 01/18/2019 13:23:59 Pre-surgery evaluation 533471845 Z01.818 Labs and EKG done previously . Patient had stress test 01/10/19 that was normal with EF > 75%. According to [facility] Becki-opera tive Risk Assessment , based on patient's age, creatinine , ASA class and surgical procedure, patient has a 0.79% risk of becki-opera tive myocardial infarction or cardiac arrest. No further work-up needed,she should proceed as scheduled. stop ASA 7 days prior to her surgery. Essential hypertension 51687380 I10 BP well controlled , continue current meds. Type 2 sonja betes mellitus controlled by diet 8170169594 08613 E11.9 last A1C 6.0, has never been on meds for this. Osteoarthr itis of left knee joint 3460382987 50906 M17.12 bilateral knees and shoulders. Having L TKR with Dr. Jimenez on 02/04/19. [id number] Agustin Matthews MD Main Office [address] [facility] [address] [place] [address] 02/20/2019 10:19:47 02/27/2019 09:16:20 [id number] Agustin Matthews MD Main Office [address] [facility] [address] [place] [address] 02/28/2019 13:08:23 02/28/2019 14:34:48 Influenza vaccine needed 2883361778 106 Z23 Pure hypercholesterolemia 392732482 E78.00 continue meds, will discuss any labs at upcoming physical Essential hypertension 79720295 I10 BP controlled on present meds, no changes Knee joint prosthesis present 9513478187 02 Z96.652 Pt doing well post operativel y, no concens, no changes in meds for now. Will DC coumadin on Monday. Discussed weaning down on pain medication . [id number] Agustin Matthews MD Main Office [address] [facility] [address] [place] [address] 04/29/2019 08:12:32 04/29/2019 09:14:42 Adult health examination 686854621 Z00.00 Immunizati on status utd. Advised to call if changes her mind. Will screen based on risk factors. Regular dental and ophtho care advised as well as sunscreen and seat belt use. Colon breast and cervical cancer screening are utd. Pt currently demonstrat es low risk for falls and no significan t cognitive decline. Advance directives discussed. Screening for malignant neoplasm of breast 098393058 Z12.39 Osteopenia 272337834 M85 .80 Overdue for f/u. Regular weight bearing exercise advised. Vitamin D deficiency 347 93116 E55.9 Will confirm adequate supplement ation. Obesity 303092305 E66.9 Pure hypercholesterolemia 435617160 E78.01 Well controlled and regimen tolerated. Continue current dose. Diabetes mellitus 696726 09 E11.9 Well controlled with diet only. Will monitor. Essential hypertension 69660976 I10 Will try reducing BB/diureti c dose by half to hopefully avoid post op hypotensio n she had after left TKR. 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 Will monitor. Osteoarthr itis of right knee joint 6003674715 03046 M17.11 [place] for right TKR on 05/10. [id number] Agustin Matthews MD Main Office [address] [facility] [address] [place] [address] 05/14/2019 09:55:07 05/14/2019 10:42:10 [id number] Agustin Matthews MD Main Office [address] [facility] [address] [place] [address] 05/29/2019 08:43:02 05/29/2019 09:35:19 History of right total knee replacement 8557093161 809997 Z96.651 The patient underwent TKR of the right knee on 05/10/19. No signs of infection or complicati ons. Will continue with pain managment as prescribed by Dr. Tate. Continue physical therapy 3x per week. Patient instructed to call the office with any worsening or concerning symptoms. F/U with Dr. Tate on 07/09/19 as scheduled. Anemia due to unknown mechanism 56755260 D64.9 Due to iron deficiency anemia requiring ferrous sulfate following the procedure will check a CBC and ferritin levels. Hypomagnesemia 904941451 E83.42 Due to hypomagnes emia following the procedure requiring replacemen t will check a magnesium level. [id number] Agustin Matthews MD Main Office [address] [place] [address] 08/23/2019 09:03:20 08/23/2019 10:18:22 Essential hypertension 08696659 I10 Well controlled based on home BP numbers. Will continue current regimen. Osteoarthr itis of multiple joints 370244119 M15.9 Using hydrocodon e appropriat pilar/sparin gly. Rx filled last on 06/07 Pure hypercholesterolemia 118065899 E78.01 Well controlled and regimen tolerated. Continue current dose. 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 [id number] Agustin Matthews MD Main Office [address] [facility] [address] [place] [address] 01/27/2020 08:07:27 01/27/2020 08:56:38 Essential hypertension 13434414 I10 Well controlled based on home BP numbers and symptoms. Will continue current regimen. Influenza vaccine needed 1570520874 106 Z23 Pure hypercholesterolemia 811824712 E78.01 Well controlled and regimen tolerated. Continue current dose. Diabetes mellitus 651898 09 E11.9 Well controlled with diet only. Will monitor. Mild prote in-calorie malnutrition (weight for age 75-89 percent of standard) 350359122 E44.1 Started supplement will monitor while verifying Dr. Ryan' s office notes. 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 [id number] Mathieu Sesay MD Main Office [address] [facility] [address] [place] [address] 03/07/2020 09:53:45 03/07/2020 10:37:21 Influenza vaccine needed 8345770292 106 Z23 [id number] Agustin Matthews MD [facility] [address] [facility] 207 [place] [address] 05/11/2020 08:36:24 05/11/2020 10:22:38 Adult health examination 506850134 Z00.00 Immunizati on status utd. Will complete Shingrix series at local pharmacy. Will screen based on risk factors. Regular dental and ophtho care advised as well as sunscreen and seat belt use. Colon breast and cervical cancer screening are utd. Pt currently demonstrat es low risk for falls and no significan t cognitive decline. Advance directives discussed. Essential hypertension 50443597 I10 Denies any orthostati c symptoms. Will continue current regimen. Pure hypercholesterolemia 876492124 E78.01 Well controlled and regimen tolerated. Continue current dose. 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 Will continue to monitor. Osteoarthritis 818800435 M19.90 Using hydrocodon e appropriat pilar/sparin gly. Rx refilled, will monitor use. Varicella vaccination 68 584952 Z23 Screening for malignant neoplasm of breast 963637438 Z12.39 Menopause present 879717 006 Z78.0 Screening for malignant neoplasm of colon 686662816 Z12.11 Following closely with GI. Mild prote in-calorie malnutrition (weight for age 75-89 percent of standard) 787619363 E44.1 Started supplement will monitor while verifying Dr. Ryan' s office notes. Osteopenia 866146359 M85 .80 Overdue for f/u. Regular weight bearing exercise advised. Osteoarthr itis of right glenohumeral joint 7822953243 527812 M19.011 Anemia due to unknown mechanism 25284982 D64.9 Has been stable. If iron testing is normal will discontinu e iron supplement . [id number] Agustin Matthews MD Tele[facility] [address] [facility] 207 [facility] [place] [address] 11/13/2020 08:34:53 11/13/2020 13:00:35 Chronic kidney disease stage 3A 645133782 N18.31 BP well controlled . Know to avoid/limi t NSAID use. Will monitor. 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 Will continue to monitor. Osteoarthritis 342685907 M19.90 Using hydrocodon e appropriat pilar/sparin gly. Rx refilled with [facility] for 30 tabs, will monitor use. Pure hypercholesterolemia 054060572 E78.01 Well controlled and regimen tolerated. Continue current dose. Anemia 156750997 D64.9 Has been stable will monitor. Hypertensi ve renal disease 93217975 I12.9 Denies any orthostati c symptoms in context of weight loss. Will continue current regimen. [id number] Agustin Matthews MD Main Office [address] [facility] [address] [facility] [place] [address] 06/01/2021 09:19:46 06/01/2021 10:15:36 Adult health examination 275210557 Z00.00 Immunizati on status utd. Will complete Shingrix series at local pharmacy. Will screen based on risk factors. Regular dental and ophtho care advised as well as sunscreen and seat belt use. Colon breast and cervical cancer screening are utd. Pt currently demonstrat es low risk for falls and no significan t cognitive decline. Advance directives discussed. Varicella vaccination 68 209376 Z23 Screening for malignant neoplasm of breast 485630453 Z12.39 Menopause present 447555 006 Z78.0 Screening for malignant neoplasm of colon 350626915 Z12.11 Following closely with GI. Hypertensi ve renal disease 32342100 I12.9 Denies any orthostati c symptoms in context of weight loss. Will continue current regimen. Pure hypercholesterolemia 550466704 E78.01 Well controlled and regimen tolerated. Continue current dose. 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 Will continue to monitor. Eye exam advised. Essential hypertension 00779946 I10 Denies any orthostati c symptoms. Will continue current regimen. Gastroesop hageal reflux disease 490767957 K21.9 Osteoarthritis 848295060 M19.90 Using hydrocodon e appropriat pilar/sparin gly. Rx refilled, will monitor use. Chronic ki dney disease stage 3A 817800428 N18.31 [id number] Agustin Matthews MD [facility] [address] [facility] [address] [facility] [place] [address] 11/12/2021 08:44:46 11/12/2021 11:37:11 Hypertensive renal disease 07451802 I12.9 Denies any orthostati c symptoms in context of weight loss. Will continue current regimen. 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 Will continue to monitor. Eye exam advised. Osteoporosis 24691232 M8 1.0 Therapeuti c options limited because of UGI/esopha geal issues. Declines referral to rheum/endo at this time and understand s/accepts potential consequenc es. Chronic ki dney disease stage 3A 860077568 N18.31 Alkaline p hosphatase above reference range 580788171 R74.8 [id number] Agustin Matthews MD [facility] h [address] [facility] [address] [facility] [address] 11/30/2021 08:53:31 11/30/2021 14:37:23 Low back pain co-occurrent with neuralgia of right sciatic nerve 3503940104 84576 M54.41 cont ice/heat, nsaids, hep - also rec trial of gbn (see below) and PT --- call if no sig improvemen t - consider xrays / pmr eval if necessary [id number] Agustin Matthews MD Main Office [address] [address] [place] [address] 04/28/2022 08:54:04 05/03/2022 15:07:45 [id number] Agustin Matthews MD [facility] [address] [address] [place] [address] 04/29/2022 13:04:47 04/29/2022 14:20:13 Hypomagnesemia 791198828 E83.42 Leukocytosis 683975498 D 72.829 Had improved upon discharge. Will confirm stability. Hypertensi ve renal disease 27010423 I12.9 Off of meds. Will monitor BP at home and if >130/90 will resume amlodipine . History of SARS-CoV-2 29 64287776 74828756 Z86.16 Symptoms resolving post acute infection. No antiviral treatment provided in the hospital, as symptoms onset prior to diagnosis was > 7 days. Call with any new or persistent symptoms. Osteoarthr itis of right glenohumeral joint 5415234390 195905 M19.011 Has been using this medication sparingly and appropriat pilar for years. Ok to provide 30 day supply. Mild prote in-calorie malnutrition (weight for age 75-89 percent of standard) 392028217 E44.1 Will monitor and continue nutritiona l supplement as appropriat e. Has f/u scheduled with GI/surgery . Chronic ki dney disease stage 3A 437901217 N18.31 [id number] [facility]ust[facility] Matthews [facility] [address] [facility] [address] [place] [address] 05/27/2022 09:40:42 05/27/2022 15:41:47 Candidiasis of the esophagus 73284895 B37.81 Will start antifungal therapy yeimi. Hold statin while on it. Moderate protein-calorie malnutrition (weight for age 60-74 percent of standard) 807573069 E44.0 Continue supplement ation and monitor as dysphagia hopefully improves with treatment of candidiasi s and post dilation. Hypomagnesemia 597605484 E83.42 Continue supplement . Adjustment disorder with mixed emotional features 36498914 F43.23 Mood has been strained by recent health issues, but overall coping ok. Will monitor. [id number] Agustin Matthews MD Main Office [address] [address] [place] [address] 07/20/2022 08:53:38 07/28/2022 14:11:20 [id number] Romeo Barnard MD Main Office [address] [address] [place] [address] 09/16/2022 13:12:30 09/16/2022 14:39:22 Esophageal atresia, stenosis and fistula 662755303 Q39.1 S/p gastrotomy with G tube. VNA , PT/OT in place. Moderate protein-calorie malnutrition (weight for age 60-74 percent of standard) 661069709 E44.0 maintainin g weight with nutrition via G tube. 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 A1c is 5.6% Chronic ki dney disease stage 3A 899737695 N18.31 review labs done in rehab. Hypertensi ve renal disease 74690112 I12.9 review labs. Continue metoprolol . F/u with PCP as scheduled. Renal mass 755040091 N28 .89 schedule MRI with mass protocol of the abdomen and pelvis. [id number] Agustin Matthews MD Main Office [address] [address] [place] [address] 09/16/2022 13:12:58 09/16/2022 14:51:43 [id number] Agustin Matthews MD [facility] [address] [address] [place] [address] 10/21/2022 09:39:05 10/25/2022 08:27:52 Chronic pain 74711509 G89.29 Need to screen for metabolic/ reversible deficienci es. Loss of se nse of smell 13918158 R43.0 Possibly from her COVID infection but present for >6months and denies any sinus symptoms. May need MRI/ENT eval, but mobility is currently severely limited. Constipation 91254708 K5 9.00 OK to increas emiralax to BID for 1 week. Hypertensi ve renal disease 28576455 I12.9 Started on BB, elevated in BP. WIll monitor with [facility]. Hypomagnesemia 395710560 E83.42 Not on supplement since SNF stay. Will see if needed. Myalgia/my ositis - multiple 329592849 M79.10 Diffuse muscle/fantasma nt pain raises concern for nutritiona l deficit or systemic inflammato ry process. Anemia 941718774 D64.9 Significan t on labs done last month. Will reassess. 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 [id number] Agustin Matthews MD [facility] [address] [facility] [address] [place] [address] 01/03/2023 09:25:04 01/03/2023 11:30:42 Fracture of femur 71534372 S72.92XD s/p prolonged inpt admission at [facility], cont meds & services as dir, pending see neos in ~ 3 wks Chronic pain syndrome 37 5920692 G89.4 cont tyl 500mg 1-2 tabs up to 3 times dailycont duloxetine as dirpt had metabolic w/u c pcp a few months ago, will defer further management to him - has awv in ~ 2 wks Nausea 287853493 R11.0 has been on feeding tube x long time, nausea helped by reglan 1x/day (less so lately as per son - eating better at home, slowly gaining wt, less tube feeds lately) - requests refill med, hopefully in near future get referral back to GI to pull Gtube (? placed in [place]) Retention of urine 60810 4002 R33.9 uro started med d/t urinary retention (rev. uro note 6.23) - h/o kidney mass - cont med as dir, cont f/u c uro [id number] Agustin Matthews MD Main Office [address] [facility] [address] [place] [address] 01/19/2023 13:34:08 01/19/2023 15:07:27 Adult health examination 455175540 Z00.00 Immunizati on status partially updated. COVID booster advised at local pharmacy. Will screen based on risk factors. Regular dental and ophtho care advised as well as sunscreen and seat belt use. Colon breast and cervical cancer screening are utd. Pt currently demonstrat es low risk for falls and no significan t cognitive decline. Advance directives discussed. Influenza vaccine needed 3967687068 106 Z23 Chronic constipation 236 772326 K59.09 Iron defic iency anemia 86631086 D50.9 Pressure i njury of sacral region of back 323314773 L89.159 VNA is attending to wound Urinary incontinence 165 937361 R32 Screen for infection. Advance di rective discussed with patient 775683053 Z71.89 HCP needs to be updated since her daughters passing, MOLST form reviewed/p rovided. Gastrostomy present 3021 73274 Z93.1 Not sure it is still needed. Will ask GI to help with this as well as other intestinal issues. Pain of mu ltiple joints 26964820 M25.50 Hypomagnesemia 574750990 E83.42 Not on supplement since SNF stay. Will see if needed. Moderate protein-calorie malnutrition (weight for age 60-74 percent of standard) 255844021 E44.0 Has GT but no longer receiving tube feeds. Osteoporosis 90410343 M8 1.0 Therapeuti c options limited because of UGI/esopha geal issues. Declines referral to rheum/endo at this time and understand s/accepts potential consequenc es. 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 Renal mass 121672768 N28 .89 Seen on MRI in September, 1.2 cm with some peripheral enhancemen t. Once other issues stabilize may need further evaluation . Vitamin D deficiency 347 19411 E55.9 Will confirm adequate supplement ation. 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 Will continue to monitor. Eye exam advised. 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 urge incontinen ce d/t size of lower abdominal hernia (and/or constipati on) not allowing bladder to expand Renal mass 815846521 N28 .89 cont w/u as per uro - next in a few wks Fatigue 56895238 R53.83 most likely d/t waking up a few times /night to get up to use the bathroom - wants to 'stay clean'/not urinate on selfencour aged pt to use diaper o/n so she can sleep through the nightconti nue to monitor fatigue, sleep habits - pivot further testing based on response Constipation 96464152 K5 9.00 encouraged pt to take miralax regularly (daily - qod) and not prn [id number] Agustin Matthews [facility] [address] [facility] 207 [facility] [place] [address] 04/18/2023 13:56:57 04/18/2023 15:09:42 Eruption 845145785 R21 itchy rash L buttock/hi p/waist area x few days as per pt - no vesicles/p ain, so offered reassuranc e that doubt she has shinglesre c trial c otc desitin (zinc oxide) for several days - and if no better then try otc lotrimin (anti-kemar al) [id number] Agustin Matthews [facility] [address] [facility] [address] [facility] [place] [address] 04/28/2023 09:54:37 04/28/2023 10:54:48 Pruritic rash 92663224 L28.2 Will cover for likely eczema, call inb/worse. [id number] Agustin Matthews MD [facility] [address] [address] [place] [address] 06/02/2023 13:38:58 06/02/2023 15:06:08 Moderate protein-calorie malnutrition (weight for age 60-74 percent of standard) 354781331 E44.0 No longer receiving tube feeds, due for follo Pure hypercholesterolemia 705084066 E78.01 Well controlled and regimen tolerated. Continue current dose. Chronic constipation 236 673288 K59.09 Will switch from docusate to senna and try a dulcolox supp Hypertensi ve renal disease 41142546 I12.9 Well controlled based on home values on BB. Will continue. Chronic ki dney disease stage 2 315451005 N18.2 [id number] Agustin Matthews MD Main Office [address] [address] [place] [address] 09/19/2023 13:53:09 09/20/2023 14:08:16 [id number] Agustin Matthews MD Main Office [address] [place] [address] 10/26/2023 13:37:12 10/26/2023 14:19:21 [id number] Agustin Matthews MD Main Office [address] [place] [address] [place] [address] 10/31/2023 12:48:03 10/31/2023 14:25:07 Ischial bursitis 791435638 M70.72 Slowly improving. Oxycodone working for this and her chronic shoulder pain which she used to use hydrocodon e for. Chronic constipation 236 850876 K59.09 Lactulose working better than miralax. Gastroesop hageal reflux disease 062005072 K21.9 Well controlled on PPI without warning signs. With comorbidit ies I would be reluctant to wean off. Closed fra cture of hip 533100674 S72.002A Needs follow up from injury/fra cture repair surgery last year. Impingemen t syndrome of left shoulder region 0812499423 71555 M75.42 Longstandi ng issue, but patient has been deferring evaluation . Current degree of limitation has pushed her to want to proceed Iron defic iency anemia 38845876 D50.9 Recent CBC only showed slightly low HGB. Will monitor. Hypomagnesemia 835052902 E83.42 Not on supplement since SNF stay. Will see if needed. 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 Will recheck in the Fall. Lower urin phillip tract symptoms 584601025 R39.9 Was started on tamsulosin with unclear indication except for LUTS which may be related to constipati on. Will d/c tamsulosin and monitor symptoms. Depressive disorder 3548 9007 F32.0 On duloxetine for this and neuropathi c pain. Will continue. [id number] Agustin Matthews MD Main Office [address] [place] [address] 12/19/2023 07:51:31 12/19/2023 12:42:37 [id number] Agustin Matthews MD Main Office [address] [place] [address] 12/25/2023 14:14:36 12/25/2023 15:49:56 Transition from acute care to self-care [id number] 21699 Z76.89 Nausea [id number] R11.0 has been on feeding tube x long time, nausea helped by reglan 1x/day (less so lately as per son - eating better at home, slowly gaining wt, less tube feeds lately) - requests refill med, hopefully in near future get referral back to GI to pull Gtube (? placed in [place]) 8.24 - n persists, fortunatel y no v - pt requests refill of prn zofran Gastroesop hageal reflux disease [id number] K21.9 s/p recent admission - rev dc summarycon t ppi qdPatient is scheduled to see thoracic sx outpatient on 01.19.24 -- h/o kathia fundoplica tion (Gerd)cont f/u c wmgi - she was turned away last year - will send another eval - she is not establishe d c another gi practice Constipation 95171781 K5 9.00 last bm earlier today - rec take miralax more frequently (1/2 - 1 scoop 1-2x/day) to decrease reliance on senna -- take 2 tabs prn if no bm for 2-3 days Esophageal dysmotility 866094816 K22.4 Patient is scheduled to see thoracic sx outpatient on 01.19.24 -- h/o kathia fundoplica tion (Gerd) [id number] Agustin Matthews MD Main Office [address] [facility] [address] [place] [phone] 02/28/2024 08:44:33 02/28/2024 12:48:29 [id number] Agustin Matthews MD Main Office [address] [facility] 207 [facility] [place] [address] 03/07/2024 12:57:25 03/07/2024 14:30:58 Ischial bursitis 081911536 M70.72 Slowly improving. Oxycodone working for this and her chronic shoulder pain which she used to use hydrocodon e for. 02/2024 - patient states that she was going to rehab for bilateral chronic shoulder pain but had to discontinu e due to the fact that she is now going for her recent right hip fracture. Chronic constipation 236 000728 K59.09 Symptoms improved with lactulose and miralax. Gastroesop hageal reflux disease 375759103 K21.9 Well controlled on PPI without warning signs. With comorbidit ies I would be reluctant to wean off. 02/2024 - stable. Requesting omeprazole refill. Closed fra cture of hip [id number] S72.002A 02/2024 - patient followed up with Dr. Arreola twice in the last year for L hip. Xena is here today for f/u R hip fracture, s/p sx 01/18/24At home, she has services for PT, nursing, declined OT. Her family pays for a home health aid. Nursing staff comes about 1-2x per week. PT comes 2x per week. Home health aid comes MWF for about 2 hours each.Abby nue to f/u with ortho.Enco uraged Tylenol atc for pain relief.Hos pital bed ordered at this time. Impingemen t syndrome of left shoulder region [id number] 59882 M75.42 Longstandi ng issue, but patient has been deferring evaluation . Current degree of limitation has pushed her to want to proceed 02/2024 - patient states that she was going to rehab for bilateral chronic shoulder pain but had to discontinu e due to the fact that she is now going for her recent right hip fracture. 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 Depressive disorder 3548 9007 F32.0 On duloxetine for this and neuropathi c pain. Will continue. Pure hypercholesterolemia 734259624 E78.01 02/2024 - taking simvastati n 10 mg daily. Lipid panel WNL 01/2023. Essential hypertension 13784805 I10 02/2024 - Increased dose of BB for htn/tachyc ardia while in rehab - stable, cont med as dir. Transition from acute care to self-care [id number] 57432 Z76.89 [id number] Agustin Matthews MD Telehealt h [address] [facility] [address] [facility] [place] [address] 03/29/2024 13:25:56 03/29/2024 15:00:48 Adult health examination 809883347 Z00.00 Immunizati on status partially updated. COVID booster advised at local pharmacy. Will screen based on risk factors. Regular dental and ophtho care advised as well as sunscreen and seat belt use. Colon breast and cervical cancer screening are utd. Pt currently demonstrat es low risk for falls and no significan t cognitive decline. Advance directives discussed. Closed fra cture of hip 722554995 S72.002A Needs follow up from injury/fra cture repair surgery last year. Pressure i njury of sacral region of back 537775304 L89.159 [facility]NA is attending to wound [facility] ed risk for falls 955449646 Z91.81 Has home PT Hypomagnesemia 487700814 E83.42 Not on supplement since SNF stay. Will see if needed. Gastroesop hageal reflux disease 215951606 K21.9 Well controlled on PPI without warning signs. With comorbidit ies I would be reluctant to wean off. Depressive disorder 3548 9007 F32.0 On duloxetine for this and neuropathi c pain. Will continue. Moderate protein-calorie malnutrition (weight for age 60-74 percent of standard) 291955694 E44.0 Will reassess in context of chronic dysphagia Pure hypercholesterolemia 704496406 E78.01 Well controlled and regimen tolerated. Continue current dose. 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 Will reassess. Essential hypertension 38971095 I10 Denies any orthostati c symptoms. Will continue current regimen. Chronic ki dney disease stage 3A 573891079 N18.31 [id number] Agustin Matthews MD Main Office [address] [facility] [address] [place] [address] 05/23/2024 11:12:56 05/23/2024 12:56:14 Hernia of anterior abdominal wall 028419078 K43.9 Recurrent issue, and unsure if surgery is an option. Will ask Dr. Zimmer to guide mgmt plan. Abdominal pain 84051795 R10.9 ? related to hernia/con stipation. Check xray to rule out obstructio n Chronic constipation 236 602807 K59.09 States it is well controlled but if significan t on imaging will need to improve regimen. [id number] Agustin Matthews MD Main Office [address] [facility] [address] [place] [address] 07/01/2024 12:30:41 07/01/2024 13:25:39 Gastroesophageal reflux disease 410918429 K21.9 Well controlled on PPI without warning signs. With comorbidit ies I would be reluctant to wean off. Pressure i njury of buttock stage II [id number] 8928643 L89.309 [facility] ed risk for falls 852489177 Z91.81 Has home PT, needs transport chair. Nausea 130975464 R11.0 Does not like sublingual /dissovabl e formulatio n. Anemia 250442338 D64.9 Significan t on labs done last month. Will reassess along with other nutritiona l labs from [id number] Agustin Matthews MD Main Office [address] [facility] [address] [place] [address] 07/30/2024 10:48:22 07/30/2024 11:56:36 Hypertensive renal disease 56078680 I12.9 Well controlled based on home values on BB. Will continue. 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 Will monitor History of right total knee replacement 6191493846 386996 Z96.651 will rule out impact on prosthesis . Seborrheic dermatitis 50 636067 L21.9 Call inb/worse. Hernia of anterior abdominal wall 354828277 K43.9 Recurrent issue, and unsure if surgery is an option. Will request notes from Dr. Zimmer. Health Concerns Section Related Observation LastModified by Organization Detai ls LastModified Time None Recorded Concern Status LastModified by Organization Details LastModified Time None Recorded Advance Directives Directive Y: HCP/Dtr-ShikhaChapin-Abdi Payers Encounter Date Sequence Insurance Name Policy Number Policy Jacob Covered Member ID Jacob Member ID Guarantor Name 03/07/2024 1 [place]: [facility] Xena Torres Clancey [id number] Xena Torres Clancey 03/07/2024 2 [facility] INDEMNITY PLAN - UNICARE [id number] Xena Torres Clancey [id number] Xena Torres Clancey 03/29/2024 1 [place] [facility] Xena Torres Clancey [id number] Xena Torres Clancey 03/29/2024 2 [facility] INDEMNITY PLAN - UNICARE [id number] Xena Torres Clancey [id number] Xena Torres Clancey 05/23/2024 1 [place] [facility] Xena Torres Clancey [id number] Xena Torres Clancey 05/23/2024 2 [facility] INDEMNITY PLAN - UNICARE [id number] Xena Torres Clancey [id number] Xena Torres Clancey 07/01/2024 1 [place]: [facility] Xena Torres Clancey [id number] Xena Torres Clancey 07/01/2024 2 [facility] INDEMNITY PLAN - UNICARE [id number] Xena Senior [id number] Xena Senior 07/30/2024 1 [place]: [facility] Xena Senior [id number] Xena Senior 07/30/2024 2 [facility] [id number] Xena Senior [id number] Xena Senior Notes Date Note Type Note Provider Name and Address Organization Details Recorded Time 03/07/2024 text/html Hospitalization Contact RecordReported bypatient.Follow UpHospital: SNF; admit date: (Please enter in format '/DD/YYY') (01/20/2024); date of discharge: (Please enter in format 'MM/DD/YYYY') (02/27/2024); date of contact: (Please enter in format 'MM/DD/YYYY') (02/28/2024)Notes:Med icare covered inpatient stay? yesMedicare DANITZA with in 48 working hours? yesHigh Complexity code valid on or before:FebruaryModerate Complexity code valid on or before:MarchHCP on file? yesMOLST on file? noDischarge Summary available? yes 83 year old women admitted to [facility] 01/20/2204 for further medical management and re conditioning after sustain another fall at [place] resulted in fracture right hip and undergoing surgery. During SNF stay patient received OT, PT, retirement. After 39 day stay patient hit milestone to transition to home. Due to being home bound patient will be receiving VNA home services through [facility] . Initial visit will be today 02/28/2024. [employer] Console Operator Track DANITZA call to patients son Abdi who reports patient happy to be home. Has support from her son. Patient resting at the time of call. FLACA reports patient using walker to ambulate using wheel chair for long distance. Keeping right leg elevated at rest . Patient denies chest pain, shortness of breath, nausea, vomiting,chest pain, shortness of breath or fever. No issues voiding or passing bowel. Appetite is well and pushing fluids as needed. Patient is scheduled to follow up with provider , Wayne for SNF discharge follow up. Scheduled for 03/07/2024 at 1pm. Son is requesting DME script for hospital bed, I discuss with son to call medical supply store that have bed available and I will fax order in hopes will be approved at least 80% 20 % out of pocket which son is aware. Reviewed and discussed medication with son, updated med list as needed. Abdi aware to call office as needed with questions, concerns, change in status. Pt got out of rehab February 22.Pt now has services for PT, nursing, declined OT. Family pays for home health aid. Nursing comes about 1-2x per week. PT comes 2x per week. Aid MWF for 2 hours each. Patient living with son in their house. Requesting special hospital bed - other accomodations have been made so far (ex: more railings). Son states that transition from rehab to home has been well. Wayne Gage PA-C [address] [address], [place], [phone], [facility] 03/07/2024 17:36:17 03/29/2024 text/html Medicare Annual Wellness VisitReported bypatient.Diet and Nutrition:healthy diet Fracture Risk:history of fractures;recent explained fracture Physical Activity:does not exercise on a regular basis;decreased physical activity;poor physical condition;decondition ed due to sedentary lifestyle Orientation:no disorientation to time; no disorientation to date; no disorientation to place Concentration and Memory:no decreased concentrating ability; no memory lapses or loss; does not forget words Speech/Motor difficulties:no speech difficulties; no difficulty with fine manipulative tasks;difficulty expressing formulated concepts;knocking things over when trying to pick them up Hearing:loss of hearing: in both ears Vision:no vision problems Activities of Daily Living:able to dress with limited or no assistance; able to feed self with limited or no assistance; able to get out of chair or bed with limited or no assistance;unable to bathe without assistance;unable to contol urination and bowels;unable to groom without assistance;unable to toilet without assistance Instrumental Activities of Daily Living:unable to do house work without assistance;unable to grocery shop without assistance;unable to manage medications without assistance;unable to manage money without assistance;unable to to prepare meals without assistance Falls Risk Assessment:fall(s) in the past year 3; fall(s) since last visit1 Home Safety:no unsafe izabel hazzards; no unsafe stairs; working smoke/CO detectors; use of seatbelts; has hand bars in the bathroom/shower Agustin Matthews MD [address] [address], [place], [phone], [facility] 03/29/2024 14:58:07 05/23/2024 text/html Abdominal PainReported bypatient.Location:RL Q; RUQ; periumbilical Quality:pain Onset/Timing:wax/wane Modifying Factors:moving bowels Associated Symptoms:no fever; no chillsNotes:Has known large ventral hernia and history of bowel obstruction/Kathia with numerous complications. No with pain anteriorly for 2-3 weeks better over the last week. Denies significant constipation symptoms and using miralax. [place] Pasty Zimmer [place] [facility] Agustin Matthews MD [address], [phone], [facility] 05/23/2024 12:54:36 07/01/2024 text/html Skin LesionRepor joel bypatient.Location:ba ck Quality:painful; tender; soreNotes:Has recurrent decubitus ulcer that needs some attention. Wears diaper and uses bad but is still minimally mobile. Agustin Matthews MD [address], [address], [facility] 07/01/2024 13:27:28 07/30/2024 text/html Abdominal PainReported bypatient.Location:RL Q; RUQ; periumbilical Quality:pain Onset/Timing:wax/wane Modifying Factors:moving bowels Associated Symptoms:no fever; no chillsNotes:Has known large ventral hernia and history of bowel obstruction/Kathia with numerous complications. No with pain anteriorly for 2-3 weeks better over the last week. Denies significant constipation symptoms and using miralax. Was last seen by Patsy Zimmer and Johnny at [facility] no notes received but states that she is not a surgical intervention candidate.Hypertensio n F/UReported bypatient.Associated Symptoms:no dizziness; no lightheadedness; no chest pain; no shortness of breath; no palpitations; no edema; no calf pain with exertion Lifestyle:limiting/av oiding salt;not exercising regularly Medications:taking medications as directed; no side effects from medication Agustin Matthews MD [address], [address], [facility] 08/26/2024 07:41:47 OBGyn Episode No OBEpisode recorded.
== END 2024-09-11 15:13 | disposition home or self-care (01) ==
LOC: HO.HOSX 15:12
PROVIDERS: Visit Provider Orthopaedic Surgery
DX: Z13.89 Encounter for screening for other disorder (principal)